=== PATIENT | male | born 1930 | race Caucasian/White ===

== ENCOUNTER → 2016-08-25 | Outpatient (CLI) | payer MEDICARE, OTHER ==
[~2016-08-25] MED LIST: ACHD5005 PO; AMLO10TA PO; AMLO5TAB2 PO; ASP325T PO; ASPI-587 PO; CLPD75T PO; FERR27TA PO; FISH OIL 1,2001 EAC1 PO; FOLI1TAB6 PO; INSU100V6 SQ; NEBI2.5T5 PO; NF-ESOM40C PO; PANT20TA2 PO; RIVA20TA4 PO; SIMV80TA3 PO
--- OUTSIDE RECORDS SUMMARY | 2016-08-25 07:44 | XMS REPORT | Continuity of Care Document ---
Author Author [facility] Organization [facility] Address Unknown Phone Unavailable Care Team Providers Care Catalyst Manufacturing Operator Name Role Phone MASON ACEVES MD PCP Insurance Providers Payer Name Policy Number Subscriber Name Relationship Wps Medicare [id number] Polo Cole 18 Self / Same As Patient Enter Insurance Name [id number] Ploo Cole 18 Self / Same As Patient Advance Directives Directive Response Recorded Date/Time Advance Directives No 11/05/14 11:38am Health Care Power of Copywriting Intern Y DAUGHTER 11/05/14 11:38am Organ Donor No 11/05/14 11:38am Problems Medical Problems Problem Onset Date Status Acute renal insufficiency Unknown Active Vertigo Unknown Active Orthostatic hypotension Unknown Active Orthostatic hypotension Unknown Active Medications Medication Dose Route Sig Days/Qty Instructions Order Date Discontinued Date Status Simvastatin 80 Mg PO DAILY 07/17/10 Active Clopidogrel Bisulfate 1 Each PO DAILY 07/17/10 11/05/14 Discontinued Nebivolol Hcl 1 Each PO DAILY 07/17/10 11/05/14 Discontinued [place]-3 Fatty Acids/Fish Oil 1 Each PO DAILY 07/17/10 Active Folic Acid/Mv,Fe,Other Min 1 Each PO DAILY 07/17/10 11/05/14 Discontinued Ferrous Sulfate 27 Mg PO DAILY 07/17/10 Active Aspirin 325 Mg PO DAILY 07/17/10 06/14/12 Discontinued Insulin Glargine,Hum.rec.anlog 8 Unit SQ BEDTIME 07/17/10 11/05/14 Discontinued Acetaminophen/Hydrocodone Bitart (Lorcet 5/325MG) 1 - 2 Tab PO NEEDED 28 Qty EVERY 4 HRS. NEEDED 08/03/10 06/14/12 Discontinued Esomeprazole Magnesium 1 Cap PO DAILY 30 Qty 06/20/12 11/05/14 Discontinued Insulin Glargine,Hum.rec.anlog 7 Unit SQ BEDTIME 0 Qty 11/05/14 Discontinued Pantoprazole Sodium 40 Mg PO TWICE A DAY 11/05/14 Active Rivaroxaban 20 Mg PO DAILY 11/05/14 Active Amlodipine Besylate 10 Mg PO DAILY 11/05/14 Active Aspirin 81 Mg PO DAILY 11/05/14 Active Amlodipine Besylate (Norvasc 5 Mg) 2.5 Mg PO DAILY 14 Qty 11/05/1406/21 Discontinued Social History Social History Problem Response Recorded Date/Time Alcohol Use Denies Use 11/05/2014 11:38am Recreational Drug Use No 11/05/2014 11:38am Recent Foreign Travel No 09/12/2014 9:54am Hospital Discharge Instructions No hospital discharge instructions. Plan of Care No plan of care. Functional Status No functional status results. Allergies, Adverse Reactions, Alerts Allergen Type Severity Reaction Status Last Updated Penicillins ([id number]) Allergy Unknown Active 07/22/10 Immunizations Name Given Type Date of Influenza Vaccine 03/07/12 Historical Tetanus Booster (TDap) More than 5yrs Historical Vital Signs No known vital signs results. Results No known relevant diagnostic tests, laboratory data and/or discharge summary. Procedures Procedure Status Date Provider(s) 48 hour Holter monitoring completed 09/12/14 MASON ACEVES MD 48 hour Holter monitoring completed 09/12/14 MASON ACEVES MD Encounters Encounter Location Date/Time Discharged Rec[facility]ring [facility] 09/12/14 9:55am
--- NOTE | 2016-08-25 10:05 | Diagnostic Imaging Report ---
INDICATION: Abdominal aortic aneurysm Abdominal aortic sonography performed in the routine fashion. Study limited due to overlying gas. Abdominal aortic aneurysm measured about 4.7 x 3.7 cm. This is compared to about 4.4 cm maximally on the prior study. Due to the limited visualization, might consider CT for further evaluation. IMPRESSION: Abdominal aortic aneurysm seen measuring 4.7 cm in greatest diameter. Visualization is limited secondary to overlying gas. Consider CT as clinically warranted for more complete evaluation. Dictated by: Dictated on workstation # [id number]
== END ==
LOC: RAD 07:39
PROVIDERS: ATTEND Internal Medicine Cardiovascular Disease
DX: I71.4 Abdominal aortic aneurysm, without rupture (principal); I65.23 Occlusion and stenosis of bilateral carotid arteries; N18.3 Chronic kidney disease, stage 3 (moderate); J43.8 Other emphysema; E11.43 Type 2 diabetes mellitus with diabetic autonomic (poly)neuropathy; I12.9 Hypertensive chronic kidney disease with stage 1 through stage 4 chronic kidney disease, or unspecified chronic kidney disease; E78.00 Pure hypercholesterolemia, unspecified; I70.0 Atherosclerosis of aorta; Z72.0 Tobacco use
CPT/HCPCS: 76775

== ENCOUNTER → 2017-01-07 | Outpatient (CLI) | payer MEDICARE, OTHER | LOC: CARD 08:05 | PROVIDERS: ATTEND Nurse Practitioner Family | DX: I71.4 Abdominal aortic aneurysm, without rupture (principal); I34.0 Nonrheumatic mitral (valve) insufficiency; J43.8 Other emphysema; R06.09 Other forms of dyspnea; I10 Essential (primary) hypertension | CPT/HCPCS: 93306 ==

== ENCOUNTER → 2017-01-20 | Outpatient (CLI) | payer MEDICARE, OTHER ==
--- NOTE | 2017-01-20 14:26 | Diagnostic Imaging Report ---
EXAMINATION: PA and lateral chest at 12:16 p.m. INDICATION: Postop colostomy. FINDINGS: The heart size is within normal limits and stable when compared to 09/04/2015. There is no sign of failure, pneumonia, or pleural effusion to suggest an acute abnormality. There is a small nodular density overlying the right upper lung. This finding has been present on previous exams dating back to 07/22/2010 and does not seem to have changed significantly. I suspect that this is a benign process given its relatively stable appearance over a roughly six-year period. The mediastinum is not widened. The osseous structures are intact. IMPRESSION: 1. There is no evidence for an acute cardiopulmonary abnormality. When compared to the prior study, there has been no significant change. 2. The nodular density overlying the right upper lung seen previously does not appear to have changed significantly. Most likely, this is a benign process. Dictated by: Dictated on workstation # [id number]
== END ==
LOC: RAD 11:48
PROVIDERS: ATTEND Nurse Practitioner Family
DX: R91.1 Solitary pulmonary nodule (principal); Z93.3 Colostomy status; Z98.890 Other specified postprocedural states
CPT/HCPCS: 71020

== ENCOUNTER → 2017-03-02 | Outpatient (CLI) | payer MEDICARE, OTHER ==
[2017-03-02 11:34] LABS: CALCIUM 9.8 MG/DL (8.5-10.1); CREATININE SERUM 1.4 MG/DL (0.60-1.30); MAGNESIUM 1.8 MG/DL (1.8-2.4); POTASSIUM 4.1 MMOL/L (3.6-5.0)
== END ==
LOC: LAB 10:28
PROVIDERS: ATTEND Internal Medicine Cardiovascular Disease
DX: I13.0 Hypertensive heart and chronic kidney disease with heart failure and stage 1 through stage 4 chronic kidney disease, or unspecified chronic kidney disease (principal); N18.3 Chronic kidney disease, stage 3 (moderate); I42.0 Dilated cardiomyopathy; I71.4 Abdominal aortic aneurysm, without rupture; I65.23 Occlusion and stenosis of bilateral carotid arteries; E11.29 Type 2 diabetes mellitus with other diabetic kidney complication; I70.0 Atherosclerosis of aorta; R42 Dizziness and giddiness
CPT/HCPCS: 36415; 80048; 83735

== ENCOUNTER → 2017-03-09 | Outpatient (CLI) | payer MEDICARE, OTHER ==
[2017-03-09 09:43] LABS: CREATININE SERUM 1.44 MG/DL (0.60-1.30); POTASSIUM 4.1 MMOL/L (3.6-5.0)
== END ==
LOC: LAB 09:09
PROVIDERS: ATTEND Nurse Practitioner Family
DX: I12.9 Hypertensive chronic kidney disease with stage 1 through stage 4 chronic kidney disease, or unspecified chronic kidney disease (principal); N18.3 Chronic kidney disease, stage 3 (moderate)
CPT/HCPCS: 36415; 80048

== ENCOUNTER → 2017-03-23 | Outpatient (CLI) | payer MEDICARE, OTHER ==
[~2017-03-23] MED LIST changes: +CATHETER FLUSH 10 ML SYR IV PRN; +REGADENOSON 0.4 MG/5 ML SYR (LEXISCAN) IV ONE
[2017-03-23 09:32] VITALS: BP 166/66
--- NOTE | 2017-03-25 14:21 | STRESS TEST ---
DATE OF SERVICE: 03/23/2017 RESTING AND POST REGADENOSON TECHNETIUM 99M TETROFOSMIN SPECT CT IMAGING. CLINICAL DIAGNOSIS: Dilated cardiomyopathy. Baseline images were carried out after injection of 10.78 mCi of technetium-99m Tetrofosmin. This was followed by 0.4 mg regadenoson and 30.2 mCi of technetium-99m Tetrofosmin for stress imaging. The electrocardiogram showed sinus rhythm with left ventricular hypertrophy with repolarization abnormality at baseline and this did not change significantly with regadenoson infusion. The patient tolerated the procedure well. Review of images at rest and following stress does not indicate any significant perfusion defects consistent with significant myocardial ischemia or infarction. Gated images show moderate global hypokinesis of the left ventricle with a calculated left ventricular ejection fraction of 39%. Left ventricular end diastolic volume is 134 mL. TID is absent (1.05). CONCLUSIONS: 1. No evidence of any significant myocardial ischemia or infarction on this study. 2. Dilated cardiomyopathy with moderate enlargement of the left ventricle, moderate global hypokinesis of the left ventricle and a calculated left ventricular ejection fraction of 39%. Job ID: [id number] DocumentID: [id number] Dictated Date: 03/25/2017 11:57:26 Trimmer Buffing Wheel Date: 03/25/2017 12:55:27 Dictated By: DONALD LEDEZMA MD, MA, FACP, FACC,
== END ==
LOC: CARD 07:07
PROVIDERS: ATTEND Internal Medicine Cardiovascular Disease
DX: I42.0 Dilated cardiomyopathy (principal); I12.9 Hypertensive chronic kidney disease with stage 1 through stage 4 chronic kidney disease, or unspecified chronic kidney disease; N18.3 Chronic kidney disease, stage 3 (moderate); I71.4 Abdominal aortic aneurysm, without rupture; I65.23 Occlusion and stenosis of bilateral carotid arteries; E11.29 Type 2 diabetes mellitus with other diabetic kidney complication; I70.0 Atherosclerosis of aorta; R42 Dizziness and giddiness
CPT/HCPCS: 78452; 93017

== ENCOUNTER 2018-09-18 10:57 | Inpatient (IN) | payer MEDICARE, OTHER | END 2018-09-23 10:16 | disposition swing bed (61) | LOC: 4TH 09-22 10:20 → ER 10:57 → ICU 09-19 08:35 → 4TH 12:50 → ICU 09-19 11:31 | DX: I11.0 Hypertensive heart disease with heart failure (principal); I50.23 Acute on chronic systolic (congestive) heart failure; J10.00 Influenza due to other identified influenza virus with unspecified type of pneumonia; J18.9 Pneumonia, unspecified organism; J96.21 Acute and chronic respiratory failure with hypoxia; J44.0 Chronic obstructive pulmonary disease with (acute) lower respiratory infection; J44.1 Chronic obstructive pulmonary disease with (acute) exacerbation; E78.00 Pure hypercholesterolemia, unspecified; E11.21 Type 2 diabetes mellitus with diabetic nephropathy; N18.3 Chronic kidney disease, stage 3 (moderate); E11.51 Type 2 diabetes mellitus with diabetic peripheral angiopathy without gangrene; I42.0 Dilated cardiomyopathy; I71.4 Abdominal aortic aneurysm, without rupture; I08.1 Rheumatic disorders of both mitral and tricuspid valves; R41.0 Disorientation, unspecified; E78.5 Hyperlipidemia, unspecified; H91.10 Presbycusis, unspecified ear; M19.91 Primary osteoarthritis, unspecified site; R53.1 Weakness; Z87.891 Personal history of nicotine dependence; Z99.81 Dependence on supplemental oxygen; Z85.46 Personal history of malignant neoplasm of prostate; Z90.79 Acquired absence of other genital organ(s); Z90.49 Acquired absence of other specified parts of digestive tract; Z86.718 Personal history of other venous thrombosis and embolism ==

== ENCOUNTER 2018-09-23 08:33 | Inpatient (IN) | payer MEDICARE, OTHER ==
[~2018-09-23] VITALS: Ht 185.4 cm; Wt 87.7 kg
[~2018-09-23 08:33] MED LIST changes: +ALBU2.5V4 NEB; +APIX2.5T PO; +ATOR80TA76 PO; -CATHETER FLUSH 10 ML SYR IV PRN; +FERR325T18 PO; +FURO20TA4 PO; +MULT-642 PO; +OMG1KC PO; +POTA10TA14 PO; +PRD20T PO; -REGADENOSON 0.4 MG/5 ML SYR (LEXISCAN) IV ONE
[2018-09-23] MEDS ORDERED: RT-ALBUTEROL/IPRATROPIUM 3 ML (DUONEB) VIAL INH PRN (10:45)
[2018-09-23] MEDS ORDERED: CEFEPIME INJECTION 2,000 MG in WATER (STERILE) FOR INJECTION 20 ML IV SCH (10:45)
[2018-09-23] MEDS ORDERED: ACETAMINOPHEN 325 MG TABLET PO PRN (10:45)
--- NOTE | 2018-09-23 11:04 | NUR ---
POLO KAPADIA Marita admitted to swing bed status to room 419-1, with an admitting diagnosis of SWB, PNE, COPD, WEAKNESS, CONFUSION, CHF, on 09/23/18 from acute inpatient status. PHYSICAL, OCCUPATIONAL, RECREATION, Therapy to evaluate patient for activity needs. POLO KAPADIA and/or family introduced to surroundings, call light, bed controls, phone, TV, temperature control, lights, meal times, smoking policy, visitor policy, side rail policy, bathrooms, and showers. Patient rights given to patient in the handbook.. POLO KAPADIA and/or family member verbalized understanding that [facility] is not responsible for the loss or damage to any personal effects or valuables that are kept in the patients possession during their hospitalization. The following care plans were discussed with POLO KAPADIA: Discharge Planning, WEAKNESS, CHF. POLO KAPADIA and/or family verbalizes understanding of the Interdisciplinary Patient Education. Patient and/or family were informed about the Rapid Response Team and its purpose. Call light with in reach and patient demonstrates understanding of how to use. POLO KAPADIA reports no further needs at this time. No change in patient status from 0800 Physical Assessment. Please refer to previous pt chart for assessment.
--- NOTE | 2018-09-23 11:40 | Physical Therapy Evaluation ---
PT Evaluation-General Medical Diagnosis Admission Date Sep 23, 2018 at 10:36 Medical Diagnosis: bert CHF Onset Date: Sep 18, 2018 Therapy Diagnosis Therapy Diagnosis: impaired mobility, strength, endurance Height/Weight Height (Feet): 6 Height (Inches): 1.00 Weight (Pounds): 206 Weight (Ounces): 0.0 Weight Bear Status Right Lower Extremity: Right Full Weight Bearing Left Lower Extremity: Left Full Weight Bearing Referral Physician: Cher Luo MD Reason for Referral: Evaluation/Treatment Medical History Additional Medical History Past Medical History Surgeries: Yes (PROSTATECTOMY, GALLBLADDER, AAA, KNEE) Respiratory: Yes COPD Cardiac: Yes (CHF) Chronic Edema/Swelling, Hypertension Neurological: No Reproductive Disorders: No Prostate Problems Gastrointestinal: Yes (Part of colon removed in 2009) Musculoskeletal: No Endocrine: Yes Diabetes, Insulin dep Cancer: Yes Prostate Reviewed History: Yes Social History Home: Single Level Current Living Status: Alone Entry Into Home: Stairs With Railing PT Steps Into Home: 2 Prior/Core FIM Prior Level of Function Therapy Code Descriptions/Definitions Functional Hand Measure: 0=Not Assessed/NA 4=Minimal Assistance 1=Total Assistance 5=Supervision or Setup 2=Maximal Assistance 6=Modified Hand 3=Moderate Assistance 7=Complete Hand Therapy Quality Codes: 6 Independent with activity with or without an assistive device 5 Patient requires set up or clean up by helper. Patient completes activity by themselves 4 Supervision or touching assist (CGA). [place] provide cues , steadying assist 3 The helper provides less than half the effort to complete the activity 2 The helper provides more than half the effort to complete the activity 1 Dependent. The helper does all the effort to complete an activity 7 Patient refused to complete or attempt activity 9 The patient did not perform the activity before the current illness or injury 88 Not attempted due to Medical conditions or safety concerns Functional Abilities and Goals: Independent: Patient completed the activities by him/herself, with or without an assistive device, with no assistance from a helper. Needed Some Help: Patient needed partial assistance from another person to complete activities. Dependent: A helper completed the activities for the patient. Unknown: Not Applicable: Bed Mobility: 7 Transfers (B,C,W/C) (FIM): 7 Gait: 7 Stairs: 7 Indoor Mobility (Ambulation): Independent Stairs: Independent PT Evaluation-Current Subjective Patient in bed pre tx, agrees to PT, has no complaints of pain. Pt/Family Goals "to get stronger" Objective Patient Orientation: Person, Confused Attachments: Oxygen, Vasquez Catheter 3L of O2 nasal canula ROM/Strength ROM Lower Extremities WNL Strenght Lower Extremities LLE 3+/5 gross, RLE 4-/5 gross Integumentary/Posture Bladder Incontinence: Vasquez Cath Neuromuscular (Tone, Coordination, Reflexes) NT Sensory Vision: Wears Glasses Hearing: Functional Sensation Right Lower Extremit: Intact Sensation Left Lower Extremity: Intact Transfers Therapy Code Descriptions/Definitions Functional Hand Measure: 0=Not Assessed/NA 4=Minimal Assistance 1=Total Assistance 5=Supervision or Setup 2=Maximal Assistance 6=Modified Hand 3=Moderate Assistance 7=Complete Hand Therapy Quality Codes: 6 Independent with activity with or without an assistive device 5 Patient requires set up or clean up by helper. Patient completes activity by themselves 4 Supervision or touching assist (CGA). [place] provide cues , steadying assist 3 The helper provides less than half the effort to complete the activity 2 The helper provides more than half the effort to complete the activity 1 Dependent. The helper does all the effort to complete an activity 7 Patient refused to complete or attempt activity 9 The patient did not perform the activity before the current illness or injury 88 Not attempted due to Medical conditions or safety concerns Transfers (B, C, W/C) (FIM): 4 Scootin Rollin Roll Left to Right (QC): 4 Supine to/from Sit: 4 Sit to/from Stand: 4 Sit to Lying (QC): 3 Lying to Sitting/Side of Bed(Q: 3 Sit to Stand (QC): 3 Chair/Zyi-pu-Ofebh Xfer(QC): 3 Patient performs bed mobility with SBA, supine <-> sit with min assist, sit <-> stand with min assist, transfers with min assist. Patient needs assist guiding walker, cues for hand placement and safety. Gait Does the Patient Walk?: Yes Mode of Locomotion: Walk Anticipated Mode of Locomotion: Walk Gait (FIM): 1 Walk 10 feet (QC): 3 Distance: 15' Gait Level of Assist: 4 Gait Persons Needed: 1 Gait Assistive Device: FWW Comments/Gait Description Patient ambulated 15' with a rolling walker with min assist. He needs cues to stand straiter, keep walker close and needs assist guiding walker. Balance Sitting Static: Good Sitting Dynamic: Good Standing Static: Fair Standing Dynamic: Fair Treatment bilateral seated LE exercises x20 (AP, LAQ) Assessment/Needs Patient has impaired mobility, strength, endurance. He needs assist with supine to sit and sit to stand and assist guiding the walker during ambulation. Patient is confused. Patient in recliner post tx with nurse call, phone, tray , chair alarm on. Rehab Potential: Fair PT Short Term Goals Short Term Goals Time Frame: Sep 30, 2018 Transfers (B,C,W/C) (FIM): 4 (CGA) Gait (FIM): 2 (CGA) Gait Distance Comment: 50' Gait Level of Assist: 4 Gait Assistive Device: FWW PT Plan Problem List Problem List: Activity Tolerance, Functional Strength, Safety, Balance, Gait, Transfer, Bed Mobility, ROM Treatment/Plan Treatment Plan: Continue Plan of Care Treatment Plan: Bed Mobility, Concurrent Therapy, Education, Functional Activity Tereza, Functional Strength, Gait, Safety, Therapeutic Exercise, Transfers Treatment Duration: Sep 30, 2018 Frequency: 6 times per week Estimated Hrs Per Day: .25 hour per day (15-30') Patient and/or Family Agrees t: Yes Safety Risks/Education Patient Education: Gait Training, Transfer Techniques, Correct Positioning, Safety Issues Teaching Recipient: Patient Teaching Methods: Demonstration, Discussion Response to Teaching: Reinforcement Needed Discharge Recommendations Plan Patient will perform bed mobility and transfer training, balance and endurance training, functional strengthening, gait training, and education, to improve functional mobility and independence at home. Therapy D/C Recommendations: Home w/ Family Support, Intermediate (TCU/NH) Time/GCodes Time In: 1115 Time Out: 1145 Total Billed Treatment Time: 30 Total Billed Treatment 1 visit BOZENA 15' FA 15' RAMY QUINTANILLA PT Sep 23, 2018 11:40
--- NOTE | 2018-09-23 11:48 | NUR ---
Admission Drug Regimen Review Completed: Date: 09/23/18 Time: 114 Physician Notified: MASON ACEVES MD Date: 09/23/18 Time: 1149 Issue Identified; Action Plan to Resolve and Any Action Taken:Doctor Valerio clarified that she wants the Solumedrol dose adjusted to as follows; Solumedrol 20mg IV Q12hr. She also added Eliquis 2.5mg PO BID to the patients medications that she wants him to have. I also added the ordered scheduled Albuterol/Ipra 3ml neb INH RTQ4hr scheduled back onto the patient's swing bed account as this was discontinued by [facility] d/t seen as a duplicate order.
[2018-09-23] MEDS: inSUlin ASPART (NovoLOG) 1 UNIT/0.01 ML (CHARGE PER UNIT) SC SCH ×3 (12:06→21:31)
[2018-09-23] MEDS: CEFEPIME INJECTION 2,000 MG in WATER (STERILE) FOR INJECTION 20 ML IV SCH (13:55)
--- NOTE | 2018-09-23 13:58 | ST Dysphagia Evaluation ---
Speech Evaluation-General Medical Diagnosis JOE noel Onset Date: Sep 18, 2018 Therapy Diagnosis Therapy Diagnosis: Oropharyngeal Dysphagia Precautions Precautions: Aspiration Referral Referring Physician: Dr. Luo Reason for Referral: Evaluation/Treatment Medical History Reviewed History: Yes Social History Current Living Status: Alone Speech PLF/Current-Dysphagia Prior Level of Function The patient lived alone at the time of his hospital admission. He was independent with his daily needs at that time. Subjective The patient was pleasant and cooperative. Cognitive Status Patient Orientation: Person, Place, Situation Oral Motor Skills Denture Type: Full- Upper & Lower Current Food Consistancy: Mechanical Soft Ability to Follow Directions: Good Oral Expression Ability: No Impairment Face Facial Symmetry: Symmetrical Oral-Facial Assessment Oral-Facial Dentition: Normal Labial Seal Description: Normal Smile: Normal Puff Cheeks: Normal Lingual Protrusion: Normal Lingual ROM: Normal Lingual Strength: Normal Pharynx Velopharyngeal Move.: Normal Volitional Dry Swallow: Yes Dysphagia Evaluation Consistencies Presented: Regular, Thin Liquid, Mechanical Soft, Pureed Oral Phase: Reduced Oral Transit Patient presents with delayed swallow onset for regular consistency. Decreased A/P bolus transfer for regular consistency. Funct. Velo/Pharyngeal Symptom: Cough After Swallow With regular consistency. Dietary Recommendations: Mechanical Soft Liquid Recommendations: Thin Swallowing Precautions: Alternate Liquids/Solids, Double Swallow, Decreased Rate of Oral Intake, Liquids from Straw, Small Bites and Sips, Sitting Upright 90 Degrees, Sitting 90 Degrees 30 Post Intake Dysphagia Evaluation Summary The patient is a pleasant 88 year old man who was admitted to the hospital due to pneumonia. The patient was referred for a bedside evaluation to assess swallow function. The Bedside Dysphagia Evaluation was completed with the patient sitting up in his recliner. He was presented thin liquids via straw without difficulty or coughing noted. The patient was presented puree and mechanical soft without incident of coughing. The presentation of regular consistency was noted to have a slight delay in swallow onset with cough/clear noted afterward. The patient will be placed on a Dysphagia II diet level with thin liquids. This was relayed to his nurse. Barriers to Learning Patient's age and current medical status. Speech Short Term Goals Short Term Goals Short Term Goals 1) The patient will tolerate least restrictive diet level at 90% or greater with minimal cues and no s/s of aspiration. 2) The patient will utilize compensatory strategies as trained with 90% or greater with minimal cues. Speech Fdc Goals Internet Site Designer Goals The patient will maintain adequate nutrition/hydration via safe effective swallow function. Speech-Plan Patient/Family Goals Patient/Family Goals: The patient plans to return home upon hospital discharge. Treatment Plan Speech Therapy Treatment Plan: Continue Plan of Care The patient will receive skilled ST services for dysphagia. Treatment Duration: Sep 30, 2018 Frequency: 5 times per week Estimated Hrs Per Day: .25 hour per day Rehab Potential: Fair Barriers to Learning: The patient's age and current medical status Pt/Family Agrees to Plan: Yes Safety Risks/Education Teaching Recipient: Patient Teaching Methods: Discussion Response to Teaching: Verbalize Understanding Education Topics Provided: Safety of oral intake Time Speech Therapy Time In: 12:30 Speech Therapy Time Out: 12:45 Total Billed Time: 15 Billed Treatment Time 1, KARELY Fierro Sep 23, 2018 13:58
[2018-09-23] MEDS: RT-ALBUTEROL/IPRATROPIUM 3 ML (DUONEB) VIAL INH SCH ×3 (14:37→22:46)
--- NOTE | 2018-09-23 14:57 | Occupational Therapy Eval ---
OT Evaluation-General/PLF Medical Diagnosis Admission Date Sep 23, 2018 at 10:36 Medical Diagnosis: bert CHF Onset Date: Sep 18, 2018 Therapy Diagnosis Therapy Diagnosis: decreased self care skills Height/Weight Height (Feet): 6 Height (Inches): 1.00 Weight (Pounds): 206 Weight (Ounces): 0.0 Referral Physician: Cher Luo MD Medical History Additional Medical History AAA, prostate cancer, prostatectomy, chronic edema, CHF, HTN, DM Social History Home: Single Level Current Living Status: Alone Entry Into Home: Stairs With Railing Steps Into Home: 2 ADL-Prior Level of Function Therapy Code Descriptions/Definitions Functional [place] Measure: 0=Not Assessed/NA 4=Minimal Assistance 1=Total Assistance 5=Supervision or Setup 2=Maximal Assistance 6=Modified [place] 3=Moderate Assistance 7=Complete [place] Therapy Quality Codes: 6 Independent with activity with or without an assistive device 5 Patient requires set up or clean up by helper. Patient completes activity by themselves 4 Supervision or touching assist (CGA). [place] provide cues , steadying assist 3 The helper provides less than half the effort to complete the activity 2 The helper provides more than half the effort to complete the activity 1 Dependent. The helper does all the effort to complete an activity 7 Patient refused to complete or attempt activity 9 The patient did not perform the activity before the current illness or injury 88 Not attempted due to Medical conditions or safety concerns Functional Abilities and Goals: Independent: Patient completed the activities by him/herself, with or without an assistive device, with no assistance from a helper. Needed Some Help: Patient needed partial assistance from another person to complete activities. Dependent: A helper completed the activities for the patient. Unknown: Not Applicable: ADL PLOF Comments Pt reports being independent with self care and mobility. OT Current Status Subjective Pt sitting in chair, agrees to therapy. Pt has no c/o pain. Mental Status/Objective Patient Orientation: Person confused. Oriented to person only Attachments: Vasquez Catheter, Oxygen Current Glasses/Contacts: Yes Hearing Aids: No Hand Dominance: Right Upper Extremity ROM Decreased shoulder ROM Upper Extremity Strength decreased bilaterally ADL-Treatment ADL-Current Pt completed sponge bath while seated in chair. Upper body bathing completed with SBA and cues for task completion. Assist required for lower body bathing. Don hospital gown with minimal assistance. Pt required assist to doff/don socks. Pt demonstrated ability to perform sit to stand and transfers with minimal assistance, cues for hand placement and safety. Pt combed hair with SBA while seated. Pt sitting in chair with needs met after session, RT present. Eating (FIM): 5 (by report) Eating (QC): 5 Grooming (FIM): 5 Bathing (FIM): 3 Shower/Bathe Self (QC): 3 On/Off Footwear (QC): 1 Transfers (B, C, W/C) (FIM): 4 Education OT Patient Education: Rehab process Teaching Recipient: Patient Teaching Methods: Discussion Response to Teaching: Reinforcement Needed OT Short Term Goals Short Term Goals Transfers (B,C,W/C) (FIM): 4 (CGA) 1=Demonstrate adherence to instructed precautions during ADL tasks. 2=Patient will verbalize/demonstrate understanding of assistive devices/ modifications for ADL. 3=Patient will improve strength/tolerance for activity to enable patient to perform ADL's. OT Electric Tripper Machine Operator Goals Assisted Goals Time Frame: October 07, 2018 Eating (FIM): 6 Eating (QC): 6 Groomin Oral Hygiene (QC): 6 Bathing(FIM): 4 Shower/Bathe Self (QC): 4 Upper Body Dressing(FIM): 5 Upper Body Dressing (QC): 5 Lower Body Dressing(FIM): 5 Lower Body Dressing (QC): 4 Toileting(FIM): 5 Toileting Hygiene (QC): 5 Toilet/Commode Transfer(FIM): 5 Toilet/Commode Transfer (QC): 5 Shower Transfer(FIM): 5 Additional Goals: 1-Demonstrate ADL Tasks, 2-Verbalize Understanding, 3- ImproveStrength/Tereza 1=Demonstrate adherence to instructed precautions during ADL tasks. 2=Patient will verbalize/demonstrate understanding of assistive devices/ modifications for ADL. 3=Patient will improve strength/tolerance for activity to enable patient to perform ADL's. OT Education/Plan Problem List/Assessment Assessment: Decreased Activ Tolerance, Decreased Safety Aware, Decreased UE Strength, Dependent Transfers, Impaired I ADL's, Impaired Self-Care Skills Pt to benefit from skilled OT intervention for ADL training, transfers, strengthening, and safety education to increase level of independence and allow safe discharge plan. Discharge Recommendations Plan/Recommendations: Continue POC Treatment Plan/Plan of Care Patient would benefit from OT for education, treatment and training to promote independence in ADL's, mobility, safety and/or upper extremity function for ADL' s. Plan of Care: ADL Retraining, Functional Mobility, UE Funct Exercise/Act Treatment Duration: October 07, 2018 Frequency: 5 times per week Estimated Hrs Per Day: .25 hour per day Rehab Potential: Fair Time/GCodes Start Time: 14:16 Stop Time: 14:40 Total Time Billed (hr/min): 24 Billed Treatment Time 1 visit, EVM(10minutes), ADL(14minutes) DEZ LOVING OT Sep 23, 2018 14:57
[2018-09-23 18:25] VITALS: BP 128/65
[2018-09-23] MEDS: methylPREDNISolone 40 MG/ML (Solu-MEDROL) VIAL IV SCH (21:31)
[2018-09-23] MEDS: APIXABAN 2.5 MG (ELIQUIS) TABLET PO SCH (21:31)
[2018-09-24] MEDS: RT-ALBUTEROL/IPRATROPIUM 3 ML (DUONEB) VIAL INH SCH ×6 (02:48→22:58)
[2018-09-24 04:27] LABS: HEMOGLOBIN 10.3 G/DL (13.3-17.7); MEAN PLATELET VOLUME 13.1 FL (7.4-10.4); RED CELL DISTRIBUTION WIDTH 17.4 % (10.0-14.5); WHITE BLOOD COUNT 11.2 10^3/uL (4.3-11.0)
[2018-09-24 04:45] LABS: ALBUMIN 2.7 GM/DL (3.2-4.5); BILIRUBIN,TOTAL 1.1 MG/DL (0.1-1.0); CALCIUM 8.8 MG/DL (8.5-10.1); CREATININE SERUM 1.21 MG/DL (0.60-1.30); POTASSIUM 4.4 MMOL/L (3.6-5.0); TOTAL PROTEIN 4.5 GM/DL (6.4-8.2)
[2018-09-24] MEDS: inSUlin ASPART (NovoLOG) 1 UNIT/0.01 ML (CHARGE PER UNIT) SC SCH ×4 (05:04→21:10)
[2018-09-24 06:00] VITALS: BP 137/72
--- NOTE | 2018-09-24 07:09 | Pulmonary Progress Note ---
Subjective Time Seen by a Provider: 10:35 Subjective/Events-last exam No complications noted. Sepsis Event Evaluation Height, Weight, BMI Height: 6'1.00" Weight: 206lbs. 0.0oz. 93.472898qc; 27.2 BMI Method:Stated Exam Exam Vital Signs Date Time Temp Pulse Resp B/P (MAP) Pulse Ox O2 Delivery O2 Flow Rate FiO2 09/24/18 06:00 96.9 77 20 137/72 (93) 93 Nasal Cannula 3.00 09/24/18 02:48 Nasal Cannula 3.00 09/23/18 22:49 Nasal Cannula 09/23/18 20:00 Nasal Cannula 3.00 09/23/18 19:04 96 Nasal Cannula 3.00 09/23/18 18:25 98.8 73 16 128/65 (86) 95 Nasal Cannula 3.00 09/23/18 14:37 94 Nasal Cannula 3.00 I & O 09/24/18 07:00 Intake Total 2070 ml Output Total 1750 ml Balance 320 ml Height & Weight Height: 6'1.00" Weight: 206lbs. 0.0oz. 93.854004pv; 27.2 BMI Method:Stated General Appearance: No Apparent Distress, WD/WN, Anxious, Chronically ill HEENT: PERRL/EOMI, Normal ENT Inspection, Pharynx Normal Neck: Full Range of Motion, Normal Inspection, Non Tender, Supple Respiratory: Chest Non Tender, No Accessory Muscle Use, No Respiratory Distress , Decreased Breath Sounds Cardiovascular: Regular Rate, Rhythm, No Edema, No Gallop Capillary Refill: Less Than 3 Seconds Gastrointestinal: normal bowel sounds, non tender, soft Extremity: Normal Capillary Refill, Normal Inspection, No Pedal Edema Neurologic/Psychiatric: Alert, Oriented x3 Skin: Normal Color, Warm/Dry Lymphatic: No Adenopathy Results Lab Laboratory Tests 09/24/18 03:50 Assessment/Plan Assessment/Plan Acute on chronic respiratory failure hypoxia secondary to CHF with bilateral pleural effusions and PNA -Oxygen PNA - Pt has hx of RUL lung nodule per CXR. No previous CT of chest -Continue Cefepime started 09/20 - continue Abx for 7days total. -Check CT of chest reviewed - No suspicious mass. Does show bilateral pleural effusions and RLL infiltrate -Pt will need repeat CT scan 8 wks after discharge to ensure complete resolution of infiltrate. Acute renal failure- improved after holding lasix yesterday COPDAE -Solumedrol 40 IV Q6 Influenza -Symptoms started 3 days ago however secondary to pt's acuity level I am going to start Tamiflu -Montior Systolic CHF -Lasix 40mg IV BID - Hold today's dose - Echo - 20-25% -Cardiology consulted -Stress test 03/23 shows EF of 39% NSTEMI -Cardiology consulted COPD -Last PFT 07/2012 shows moderate COPD -I will follow as out pt and repeat PFT Hx of lung nodule -Pt will need out pt CT scan. DM, HTN, hypercholesterolemia YONATAN WEBB DO Sep 24, 2018 07:09
[2018-09-24] MEDS: FUROSEMIDE 40 MG/4 ML INJ (LASIX) IVP SCH (08:21)
[2018-09-24] MEDS: methylPREDNISolone 40 MG/ML (Solu-MEDROL) VIAL IV SCH ×2 (08:21→21:10)
[2018-09-24] MEDS: KCL 20 MEQ TAB (K-DUR) PO SCH (08:22)
[2018-09-24] MEDS: APIXABAN 2.5 MG (ELIQUIS) TABLET PO SCH ×2 (08:22→21:09)
--- NOTE | 2018-09-24 09:52 | Physical Therapy Daily Note ---
PT Daily Note-Current Subjective Pt slightly confused upon arrival, states he already had PT this morning, as conversation went on, states he was mistaken and realized it was yesterday he had PT. Agreeable to PT session this morning Pain Numeric Pain Scale: 0-No Pain Appearance Upon arrival, pt supine in bed with HOB elevated, awake, slightly confused At end of session, pt sitting up in recliner with nurse present, chair alarm activated, call light, phone and bedside table within reach Mental Status Patient Orientation: Person, Confused, Place, Time, Situation Attachments: Oxygen, Vasquez Catheter Transfers Therapy Code Descriptions/Definitions Functional [place] Measure: 0=Not Assessed/NA 4=Minimal Assistance 1=Total Assistance 5=Supervision or Setup 2=Maximal Assistance 6=Modified [place] 3=Moderate Assistance 7=Complete [place] Therapy Quality Codes: 6 Independent with activity with or without an assistive device 5 Patient requires set up or clean up by helper. Patient completes activity by themselves 4 Supervision or touching assist (CGA). Cruger provide cues , steadying assist 3 The helper provides less than half the effort to complete the activity 2 The helper provides more than half the effort to complete the activity 1 Dependent. The helper does all the effort to complete an activity 7 Patient refused to complete or attempt activity 9 The patient did not perform the activity before the current illness or injury 88 Not attempted due to Medical conditions or safety concerns Transfers (B, C, W/C) (FIM): 4 Scootin Rollin Supine to/from Sit: 5 (HOB slightly elevated, did not use bedrail) Sit to/from Stand: 4 (CGA) CGA with sit to stand, verb instruction required for safety and hand placement. Pt able to complete upon 1st attempt without physical support Weight Bearing Right Lower Extremity: Right Full Weight Bearing Left Lower Extremity: Left Full Weight Bearing Gait Training Does the Patient Walk?: Yes Gait (FIM): 1 Distance (FIM): 1=up to 49 ft Distance: 40 Gait Level of Assist: 5 Gait Persons Needed: 1 Gait Assistive Device: FWW very slow but steady gait, decreased step height and length, improved slightly with instruction, but did not maintain. no LOB Exercises Seated Therapy Exercises: Ankle pumps, Long arc quads, Hip flexion, Hip abd/add Seated Reps: 20 Treatments bed mobility, transfer, gait, functional mobility, strengthening, balance, safety Assessment Current Status: Good Progress PT Short Term Goals Short Term Goals Time Frame: Sep 30, 2018 Transfers (B,C,W/C) (FIM): 4 (CGA) Gait (FIM): 2 (CGA) Gait Distance Comment: 50' Gait Level of Assist: 4 Gait Assistive Device: FWW PT Management Professionals Goals Skilled Nursing Goals Rollin PT Plan Treatment/Plan Treatment Plan: Continue Plan of Care Treatment Plan: Bed Mobility, Concurrent Therapy, Education, Functional Activity Tereza, Functional Strength, Gait, Safety, Therapeutic Exercise, Transfers Treatment Duration: Sep 30, 2018 Frequency: 6 times per week Estimated Hrs Per Day: .25 hour per day (15-30') Patient and/or Family Agrees t: Yes Safety Risks/Education Patient Education: Gait Training, Transfer Techniques, Safety Issues Teaching Recipient: Patient Teaching Methods: Demonstration, Discussion Response to Teaching: Verbalize Understanding, Return Demonstration, Reinforcement Needed Time/GCodes Time In: 808 Time Out: 825 Total Billed Treatment Time: 17 Total Billed Treatment 1 visit, GT x 1 unit OZ RIOJAS SOLUTION MAKER Sep 24, 2018 09:52
--- NOTE | 2018-09-24 10:30 | Diagnostic Imaging Report ---
INDICATION: Pneumonia. COMPARISON: 09/22/2018 FINDINGS: Frontal and lateral radiographic views of the chest were obtained. There has been interval improved aeration bilaterally with diminished interstitial infiltrates. Cardiac silhouette and pulmonary vasculature are also improved. There is masslike opacity within the right lower lung field, which is felt to on the basis of effusion contained within the right minor fissure. It measures approximately 7 x 7 cm. No pneumothorax seen on either side. Small left effusion is also noted. Bony structures show no acute abnormalities. IMPRESSION: 1. Improved cardiomegaly and pulmonary vascular congestion. 2. Improved interstitial opacities; likely on the basis of resolving interstitial edema. 3. Residual bilateral effusions as described above. Dictated by: Dictated on workstation # [id number]
[2018-09-24] MEDS: CEFEPIME INJECTION 2,000 MG in WATER (STERILE) FOR INJECTION 20 ML IV SCH (14:12)
[2018-09-24 18:00] VITALS: BP 161/70
[2018-09-25] MEDS: RT-ALBUTEROL/IPRATROPIUM 3 ML (DUONEB) VIAL INH SCH ×6 (02:22→21:50)
[2018-09-25 05:42] VITALS: BP 154/76
[2018-09-25] MEDS: inSUlin ASPART (NovoLOG) 1 UNIT/0.01 ML (CHARGE PER UNIT) SC SCH ×4 (06:22→20:24)
--- NOTE | 2018-09-25 06:57 | Pulmonary Progress Note ---
Subjective Time Seen by a Provider: 06:57 Subjective/Events-last exam Pt appears to be improving. No complications noted. Sepsis Event Evaluation Height, Weight, BMI Height: 6'1.00" Weight: 206lbs. 0.0oz. 93.805039kq; 27.2 BMI Method:Stated Exam Exam Vital Signs Date Time Temp Pulse Resp B/P (MAP) Pulse Ox O2 Delivery O2 Flow Rate FiO2 09/25/18 06:37 90 Nasal Cannula 3.00 09/25/18 05:42 97.7 70 22 154/76 (102) 97 Nasal Cannula 3.00 09/25/18 02:22 85 Nasal Cannula 2.00 09/24/18 22:58 92 Nasal Cannula 2.00 09/24/18 20:00 Nasal Cannula 3.00 09/24/18 18:50 97 Nasal Cannula 3.00 09/24/18 18:00 98.6 74 20 161/70 (100) 96 Nasal Cannula 3.00 09/24/18 14:59 98 Nasal Cannula 3.00 09/24/18 11:07 95 Nasal Cannula 3.00 09/24/18 09:00 Nasal Cannula 3.00 09/24/18 07:51 98 Nasal Cannula 3.00 I & O 09/25/18 06:59 Intake Total 2200 ml Output Total 1750 ml Balance 450 ml Height & Weight Height: 6'1.00" Weight: 206lbs. 0.0oz. 93.666115qs; 27.2 BMI Method:Stated General Appearance: No Apparent Distress, WD/WN HEENT: PERRL/EOMI, Normal ENT Inspection, Pharynx Normal Neck: Full Range of Motion, Normal Inspection, Non Tender, Supple Respiratory: Chest Non Tender, No Accessory Muscle Use, No Respiratory Distress , Crackles, Decreased Breath Sounds Cardiovascular: Regular Rate, Rhythm, No Edema, No Gallop, No JVD Capillary Refill: Less Than 3 Seconds Gastrointestinal: normal bowel sounds, non tender, soft, no organomegaly, no pulsatile mass Extremity: Normal Capillary Refill, No Calf Tenderness, No Pedal Edema Neurologic/Psychiatric: Alert, Oriented x3 Skin: Normal Color, Warm/Dry Lymphatic: No Adenopathy Results Lab Laboratory Tests 09/24/18 03:50 Assessment/Plan Assessment/Plan Acute on chronic respiratory failure hypoxia secondary to CHF with bilateral pleural effusions and PNA -Oxygen -Repeat labs and CXR PNA - Pt has hx of RUL lung nodule per CXR. No previous CT of chest -Continue Cefepime started 09/20 - continue Abx for 7days total. -Check CT of chest - No suspicious mass. Does show bilateral pleural effusions and RLL infiltrate -Pt will need repeat CT scan 8 wks after discharge to ensure complete resolution of infiltrate. Acute renal failure- improved after holding lasix yesterday COPDAE -Solumedrol 40 IV Q6 Influenza -Symptoms started 3 days ago however secondary to pt's acuity level I am going to start Tamiflu -Montior Systolic CHF -Lasix 40mg IV BID - Hold today's dose - Echo - 20-25% -Cardiology consulted -Stress test 03/23 shows EF of 39% NSTEMI -Cardiology consulted COPD -Last PFT 07/2012 shows moderate COPD -I will follow as out pt and repeat PFT Hx of lung nodule -Pt will need out pt CT scan. DM, HTN, hypercholesterolemia YONATAN WEBB DO Sep 25, 2018 06:57
[2018-09-25 08:21] LABS: BASOPHILS % (AUTO) 0 % (0-10); EOSINOPHILS % (AUTO) 0 % (0-10); HEMATOCRIT 31 % (40-54); HEMOGLOBIN 9.8 G/DL (13.3-17.7); LYMPHOCYTES # (AUTO) 0.8 X 10^3 (1.0-4.0); LYMPHOCYTES % (AUTO) 6 % (12-44); MEAN CORPUSCULAR HEMOGLOBIN 30 PG (25-34); MEAN CORPUSCULAR HGB CONC 32 G/DL (32-36); MEAN CORPUSCULAR VOLUME 94 FL (80-99); MONOCYTES # (AUTO) 1.1 X 10^3 (0.0-1.0); MONOCYTES % (AUTO) 10 % (0-12); NEUTROPHILS # (AUTO) 9.9 X 10^3 (1.8-7.8); NEUTROPHILS % (AUTO) 84 % (42-75); PLATELET COUNT 105 10^3/uL (130-400); RED CELL DISTRIBUTION WIDTH 17.1 % (10.0-14.5); WHITE BLOOD COUNT 11.8 10^3/uL (4.3-11.0)
[2018-09-25 08:36] LABS: CALCIUM 8.7 MG/DL (8.5-10.1); CREATININE SERUM 1.17 MG/DL (0.60-1.30); MAGNESIUM 2.1 MG/DL (1.8-2.4); PHOSPHORUS 2.8 MG/DL (2.3-4.7); POTASSIUM 4.6 MMOL/L (3.6-5.0)
[2018-09-25 08:44] LABS: BAND NEUTROPHILS 5 %; LYMPHOCYTES % (MANUAL) 13 %; MONOCYTES % (MANUAL) 6 %; NEUTROPHILS % (MANUAL) 76 %
[2018-09-25 08:45] LABS: ANISOCYTOSIS MARKED; HELMET/BITE CELLS SLIGHT; HYPERSEGMENTED NEUT SLIGHT
[2018-09-25 08:46] LABS: CRENATED RBC SLIGHT
--- NOTE | 2018-09-25 08:46 | Diagnostic Imaging Report ---
INDICATION: Shortness of breath. Comparison made with prior examination 09/24/2018. FINDINGS: There is cardiomegaly. There is some venous congestion. There are bibasilar infiltrates. There are small bilateral pleural effusions. There is no pneumothorax. Mediastinum is unremarkable. IMPRESSION: Bibasilar infiltrates and small bilateral pleural effusions. Cardiomegaly and some central pulmonary venous congestion. Dictated by: Dictated on workstation # [id number]
[2018-09-25 08:48] LABS: ACANTHOCYTES MODERATE
[2018-09-25] MEDS: FUROSEMIDE 40 MG/4 ML INJ (LASIX) IVP SCH (09:24)
[2018-09-25] MEDS: KCL 20 MEQ TAB (K-DUR) PO SCH (09:24)
[2018-09-25] MEDS: methylPREDNISolone 40 MG/ML (Solu-MEDROL) VIAL IV SCH ×2 (09:24→20:24)
[2018-09-25] MEDS: APIXABAN 2.5 MG (ELIQUIS) TABLET PO SCH ×2 (09:24→20:24)
[2018-09-25] MEDS: CEFEPIME INJECTION 2,000 MG in WATER (STERILE) FOR INJECTION 20 ML IV SCH (13:49)
[2018-09-25 18:32] VITALS: BP 120/57
[2018-09-26] MEDS: RT-ALBUTEROL/IPRATROPIUM 3 ML (DUONEB) VIAL INH SCH ×6 (01:53→22:22)
[2018-09-26 04:38] LABS: HEMOGLOBIN 9.3 G/DL (13.3-17.7); MEAN PLATELET VOLUME 13.1 FL (7.4-10.4); RED CELL DISTRIBUTION WIDTH 17.2 % (10.0-14.5); WHITE BLOOD COUNT 11.5 10^3/uL (4.3-11.0)
[2018-09-26 04:53] LABS: ALBUMIN 2.6 GM/DL (3.2-4.5); BILIRUBIN,TOTAL 0.9 MG/DL (0.1-1.0); CALCIUM 8.6 MG/DL (8.5-10.1); CREATININE SERUM 1.19 MG/DL (0.60-1.30); POTASSIUM 4.9 MMOL/L (3.6-5.0); TOTAL PROTEIN 4.3 GM/DL (6.4-8.2)
[2018-09-26 05:41] VITALS: BP 143/74
[2018-09-26] MEDS: inSUlin ASPART (NovoLOG) 1 UNIT/0.01 ML (CHARGE PER UNIT) SC SCH ×4 (06:37→21:12)
--- NOTE | 2018-09-26 08:52 | Progress Note ---
Subjective Date Seen by a Provider: Sep 26, 2018 Time Seen by a Provider: 08:52 Subjective/Events-last exam PT'S DAUGHTER REPORTS IMPROVED COGNITION TODAY COMPARED TO EARLIER IN THE WEEKEND. HE REPORTS THAT HE FEELS LIKE HIS NOSE IS STUFFY, HE IS NOT GETTING MUCH AIR HE WAS YESTERDAY. HIS DAUGHTER IS WONDERING WHY HE IS ON A SOFT DIET. HE DENIES ANY CHEST PAIN, ABDOMINAL PAIN, NAUSEA, DIZZINESS. Review of Systems General: Fatigue HEENT: No Head Aches, No Visual Changes Pulmonary: Dyspnea, Cough (IMPROVING) Cardiovascular: Edema; No: Chest Pain, Palpitations Gastrointestinal: No: Nausea, Abdominal Pain Genitourinary: Other (BROWN IN PLACE) Musculoskeletal: No: back pain Neurological: Weakness; No: Confusion Objective Exam Last Set of Vital Signs Vital Signs Date Time Temp Pulse Resp B/P (MAP) Pulse Ox O2 Delivery O2 Flow Rate FiO2 09/26/18 06:25 96 Nasal Cannula 3.00 09/26/18 05:41 98.2 70 20 143/74 (97) Capillary Refill : Less Than 3 Seconds I&O Intake and Output 09/26/18 00:00 Intake Total 1900 ml Output Total 1850 ml Balance 50 ml Intake Oral 1900 ml Output Urine Total 1850 ml General: Alert, Oriented X3, Cooperative, No Acute Distress HEENT: Atraumatic, PERRLA Neck: Supple Lungs: Other (DECREASED AIR MOVEMENT THROUGHOUT - WORSE AT BASES) Heart: Regular Rate Abdomen: Normal Bowel Sounds, Soft Extremities: No Cyanosis, Other (+3 PITTING AT ANKLES) Skin: No Rashes Neuro: Normal Speech Psych/Mental Status: Mental Status NL, Mood NL Results Lab Laboratory Tests 09/25/18 11:18: Glucometer 109 09/25/18 16:05: Glucometer 217H 09/25/18 20:02: Glucometer 179H 09/26/18 04:05: White Blood Count 11.5H, Red Blood Count 3.22L, Hemoglobin 9.3L, Hematocrit 30L , Mean Corpuscular Volume 94, Mean Corpuscular Hemoglobin 29, Mean Corpuscular Hemoglobin Concent 31L, Red Cell Distribution Width 17.2H, Platelet Count 156, Mean Platelet Volume 13.1H, Sodium Level 135, Potassium Level 4.9, Chloride Level 96L, Carbon Dioxide Level 32, Anion Gap 7, Blood Urea Nitrogen 49H, Creatinine 1.19, Estimat Glomerular Filtration Rate 58, BUN/Creatinine Ratio 41 , Glucose Level 184H, Calcium Level 8.6, Corrected Calcium 9.7, Total Bilirubin 0.9, Aspartate Amino Transf (AST/SGOT) 17, Alanine Aminotransferase (ALT/SGPT) 19, Alkaline Phosphatase 58, Total Protein 4.3L, Albumin 2.6L 09/26/18 05:05: Glucometer 189H Assessment/Plan Assessment/Plan Assess & Plan/Chief Complaint ACUTE RESPIRATORY FAILURE CONGESTIVE HEART FAILURE PNEUMONIA CHRONIC OBSTRUCTIVE PULMONARY DISEASE WITH ACUTE EXACERBATION LEUKOCYTOSIS ACUTE RENAL INSUFFICIENCY CHRONIC OXYGEN DEPENDENCE GENERALIZED WEAKNESS DIABETES MELLITUS OSTEOARTHRITIS ACUTE RESPIRATORY FAILURE - WAS PLACED ON BIPAP ON ADMISSION - PT IS ON NASAL CANNULA AT 3 LITERS - WITH HUMIDIFICATION. PER HIS REPORT, HE IS FEELING BETTER TODAY. HIS DAUGHTER NOTES IMPROVED COGNITIVE FUNCTION TODAY COMPARED TO EARLIER THIS WEEKEND. CONTINUE WITH IV ANTIBIOTICS UNTIL WEDNESDAY. - CHEST XRAY STILL SHOWING BIBASILAR INFILTRATES. CONGESTIVE HEART FAILURE - PT ON LASIX - CONTINUE WITH IV LASIX OVER THE NEXT FEW DAYS - WILL TRANSITION TO ORAL LASIX ON WEDNESDAY CHRONIC OBSTRUCTIVE PULMONARY DISEASE WITH ACUTE EXACERBATION - SUPPORTIVE CARE. LEUKOCYTOSIS - IMPROVED ACUTE RENAL INSUFFICIENCY - MONITOR LABS - RENAL FUNCTION HAS IMPROVED ON FLUIDS. DC BROWN CATHETER TODAY. CHRONIC OXYGEN DEPENDENCE GENERALIZED WEAKNESS - PT RECEIVING PHYSICAL AND OCCUPATIONAL THERAPY. DIABETES MELLITUS - DIABETIC PROTOCOL. OSTEOARTHRITIS - SUPPORTIVE CARE. CONFUSION - IMPROVED. Clinical Quality Measures DVT/VTE Risk/Contraindication: Risk Factor Score Per Nursin MASON ACEVES MD Sep 26, 2018 08:52
--- NOTE | 2018-09-26 08:56 | Diagnostic Imaging Report ---
INDICATION: Followup pneumonia. COMPARISON: 09/25/2018 FINDINGS: Frontal and lateral radiographic views of the chest were obtained and continue to show small bilateral pleural effusions. Overall, aeration shows continued interval improvement. There are minimal patchy residual bibasilar opacities. There is no pneumothorax. Cardiac silhouette is improved in size as well. Pulmonary vasculature appears to be within normal limits. No gross acute osseous abnormalities are seen. IMPRESSION: 1. Persistent small bibasilar pleural effusions, but with continued improved aeration. 2. Improved cardiomegaly and pulmonary vascular congestion. Dictated by: Dictated on workstation # [id number]
[2018-09-26] MEDS: KCL 20 MEQ TAB (K-DUR) PO SCH (09:22)
[2018-09-26] MEDS: methylPREDNISolone 40 MG/ML (Solu-MEDROL) VIAL IV SCH ×2 (09:22→22:04)
[2018-09-26] MEDS: APIXABAN 2.5 MG (ELIQUIS) TABLET PO SCH ×2 (09:22→22:04)
[2018-09-26] MEDS: FUROSEMIDE 40 MG/4 ML INJ (LASIX) IVP SCH (09:22)
--- NOTE | 2018-09-26 09:52 | Physical Therapy Daily Note ---
PT Daily Note-Current Subjective Pt reports he doesn't want to, but will work with PT this morning. Pt's dtr states he has already been up and down a lot this morning with going for chest xray and with working with OT and states he is pretty grumpy Pain Numeric Pain Scale: 0-No Pain Appearance Upon arrival, pt sitting up in recliner with nursing and daughter present. At end of session, pt sitting up in recliner with LE's elevated, call light, phone and bedside table within reach. Pt's dtr present Mental Status Patient Orientation: Person, Place, Time, Eyes Open, Situation, Mumbles Attachments: Saline Lock, Oxygen, Vasquez Catheter Transfers Therapy Code Descriptions/Definitions Functional [place] Measure: 0=Not Assessed/NA 4=Minimal Assistance 1=Total Assistance 5=Supervision or Setup 2=Maximal Assistance 6=Modified [place] 3=Moderate Assistance 7=Complete [place] Therapy Quality Codes: 6 Independent with activity with or without an assistive device 5 Patient requires set up or clean up by helper. Patient completes activity by themselves 4 Supervision or touching assist (CGA). [place] provide cues , steadying assist 3 The helper provides less than half the effort to complete the activity 2 The helper provides more than half the effort to complete the activity 1 Dependent. The helper does all the effort to complete an activity 7 Patient refused to complete or attempt activity 9 The patient did not perform the activity before the current illness or injury 88 Not attempted due to Medical conditions or safety concerns Transfers (B, C, W/C) (FIM): 3 Sit to/from Stand: 3 several attempts required to stand from chair, verb instruction required for safety and hand placement. Instruction to pt's daughter to allow him to do as much for himself as possible. Decreased physical assist required with each sit to stand performed. Continued with slightly uncontrolled descent with all stand to sit transitions. Weight Bearing Right Lower Extremity: Right Full Weight Bearing Left Lower Extremity: Left Full Weight Bearing Gait Training Does the Patient Walk?: Yes Gait (FIM): 5 Distance (FIM): 1=up to 49 ft Distance: 40 Gait Level of Assist: 5 Gait Persons Needed: 1 Gait Assistive Device: FWW very slow gait speed but steady. shuffling, decreased step height and length Exercises Seated Therapy Exercises: Ankle pumps, Sit to stand (x5), Long arc quads, Hip flexion Seated Reps: 20 slow performance requiring cues to increase motions performed Treatments transfer, safety, gait, activity tolerance, functional mobility, strength Assessment Noted increased need for physical assist with sit to stand transfers compared to Wednesday. Also noted increased edema BLE's, nsg notified PT Short Term Goals Short Term Goals Time Frame: Sep 30, 2018 Transfers (B,C,W/C) (FIM): 4 (CGA) Gait (FIM): 2 (CGA) Gait Distance Comment: 50' Gait Level of Assist: 4 Gait Assistive Device: FWW PT Chopper Feeder Goals Chopper Feeder Goals Rollin PT Plan Treatment/Plan Treatment Plan: Continue Plan of Care Treatment Plan: Bed Mobility, Concurrent Therapy, Education, Functional Activity Tereza, Functional Strength, Gait, Safety, Therapeutic Exercise, Transfers Treatment Duration: Sep 30, 2018 Frequency: 6 times per week Estimated Hrs Per Day: .25 hour per day (15-30') Patient and/or Family Agrees t: Yes Safety Risks/Education Patient Education: Gait Training, Transfer Techniques, Safety Issues Teaching Recipient: Patient, Family Teaching Methods: Demonstration, Discussion Response to Teaching: Verbalize Understanding, Return Demonstration, Reinforcement Needed Time/GCodes Time In: 929 Time Out: 956 Total Billed Treatment Time: 27 Total Billed Treatment 1 visit, GT x 1 unit, EX x 1 unit OZ RIOJAS STAMPING DIE MAKER Sep 26, 2018 09:52
[2018-09-26] MEDS ORDERED: POLYETHYLENE GLYCOL 17 GM (MIRALAX) PACK PO NR (10:30)
[2018-09-26] MEDS: SENNA W/DOCUSATE (SENOKOT S) TABLET PO SCH ×2 (10:52→22:04)
--- NOTE | 2018-09-26 11:26 | Occupational Ther Daily Note ---
OT Current Status-Daily Note Subjective No pain reported. Appearance Pt. is up in chair. Daughter in room. Pt. is using electric razor to shave face. Mental Status/Objective Patient Orientation: Person Therapy Code Descriptions/Definitions Functional [place] Measure: 0=Not Assessed/NA 4=Minimal Assistance 1=Total Assistance 5=Supervision or Setup 2=Maximal Assistance 6=Modified [place] 3=Moderate Assistance 7=Complete [place] ADL-Treatment Therapy Code Descriptions/Definitions Functional [place] Measure: 0=Not Assessed/NA 4=Minimal Assistance 1=Total Assistance 5=Supervision or Setup 2=Maximal Assistance 6=Modified [place] 3=Moderate Assistance 7=Complete [place] Therapy Quality Codes: 6 Independent with activity with or without an assistive device 5 Patient requires set up or clean up by helper. Patient completes activity by themselves 4 Supervision or touching assist (CGA). [place] provide cues , steadying assist 3 The helper provides less than half the effort to complete the activity 2 The helper provides more than half the effort to complete the activity 1 Dependent. The helper does all the effort to complete an activity 7 Patient refused to complete or attempt activity 9 The patient did not perform the activity before the current illness or injury 88 Not attempted due to Medical conditions or safety concerns Grooming (FIM): 5 (Supervision to shave with electric razor.) Oral Hygiene (QC): 4 Bathing (FIM): 3 (Pt. is able to wash under arms, chest, and front olu area with cues. OT washes back, rear olu area in stance, and bilateral LE. Pt. declines showering, but does agree to spongebathe.) Shower/Bathe Self (QC): 3 Upper Body (FIM): 3 (Daughter automatically assists pt. with donning button up shirt. States that he has been weak and so she does it for him. Does report that he does on his own at home previously. Pt. is encouraged to attempt for self. Pt. is able to button shirt up.) Upper Body Dressing (QC): 2 (Pt. is able to doff left slipper sock, but unable to doff right, or don socks. OT assists with this, as well as pajama pants. Pt. has catheter in.) Lower Body Dressing (FIM): 2 (Please see above note listed under upper body dressing.) Lower Body Dressing (QC): 2 On/Off Footwear (QC): 2 Transfers (B, C, W/C) (FIM): 3 (Max cues to scoot forward in chair. Mod assist to stand with walker. CGA in stance.) Other Treatment Pt. requires encouragement at times for ADL treatment to sequence steps. Daughter in room and assists with sequencing as well. Will continue to address strengthening for increased overall strength. Education OT Patient Education: Correct positioning, Modified ADL techniques, Progress toward Goal/Update tx plan, Purpose of tx/functional activities, Reviewed precautions, Rehab process, Transfer techniques Teaching Recipient: Patient Teaching Methods: Demonstration, Discussion Response to Teaching: Verbalize Understanding, Return Demonstration OT Short Term Goals Short Term Goals Transfers (B,C,W/C) (FIM): 4 (CGA) 1=Demonstrate adherence to instructed precautions during ADL tasks. 2=Patient will verbalize/demonstrate understanding of assistive devices/ modifications for ADL. 3=Patient will improve strength/tolerance for activity to enable patient to perform ADL's. OT Administrative Services Director Goals Administrative Services Director Goals Time Frame: October 07, 2018 Eating (FIM): 6 Eating (QC): 6 Groomin Oral Hygiene (QC): 6 Bathing(FIM): 4 Shower/Bathe Self (QC): 4 Upper Body Dressing(FIM): 5 Upper Body Dressing (QC): 5 Lower Body Dressing(FIM): 5 Lower Body Dressing (QC): 4 Toileting(FIM): 5 Toileting Hygiene (QC): 5 Toilet/Commode Transfer(FIM): 5 Toilet/Commode Transfer (QC): 5 Shower Transfer(FIM): 5 Additional Goals: 1-Demonstrate ADL Tasks, 2-Verbalize Understanding, 3- ImproveStrength/Tereza 1=Demonstrate adherence to instructed precautions during ADL tasks. 2=Patient will verbalize/demonstrate understanding of assistive devices/ modifications for ADL. 3=Patient will improve strength/tolerance for activity to enable patient to perform ADL's. OT Education/Plan Problem List/Assessment Assessment: Decreased Activ Tolerance, Decreased UE Strength, Impaired Funct Balance, Impaired I ADL's, Impaired Self-Care Skills Pt to benefit from skilled OT intervention for ADL training, transfers, strengthening, and safety education to increase level of independence and allow safe discharge plan. Discharge Recommendations Plan/Recommendations: Continue POC Therapy D/C Recommendations: Home w/ Family Support, Occupational Therapy Home Care, Scheduled Assistance Treatment Plan/Plan of Care Treatment,Training & Education: Yes Patient would benefit from OT for education, treatment and training to promote independence in ADL's, mobility, safety and/or upper extremity function for ADL' s. Plan of Care: ADL Retraining, Functional Mobility, UE Funct Exercise/Act Treatment Duration: October 07, 2018 Frequency: 5 times per week Estimated Hrs Per Day: .25 hour per day Agreement: Yes Rehab Potential: Fair Time/GCodes Start Time: 08:50 Stop Time: 09:15 Total Time Billed (hr/min): 25 Billed Treatment Time 1, ADL x 2 SANTI VELOZ OT Sep 26, 2018 11:26
--- NOTE | 2018-09-26 13:53 | Speech Therapy Daily Note ---
Speech Daily Progress Note Subjective Date Seen by Provider: Sep 26, 2018 Time Seen by Provider: 00:15 The patient was finishing his lunch when I arrived. Objective The patient consumed his lunch without s/s of aspiration while utilizing compensatory strategies given minimal verbal cues. Assessment Assessment Current Status: Good Progress Treatment Plan Continue Plan of Care Speech Short Term Goals Short Term Goals Short Term Goals 1) The patient will tolerate least restrictive diet level at 90% or greater with minimal cues and no s/s of aspiration. 2) The patient will utilize compensatory strategies as trained with 90% or greater with minimal cues. Speech Buffer Machine Goals Buffer Machine Goals The patient will maintain adequate nutrition/hydration via safe effective swallow function. Speech-Plan Patient/Family Goals Patient/Family Goals: The patient plans to return home upon discharge from the hospital. Treatment Plan Speech Therapy Treatment Plan: Continue Plan of Care The patient is progressing well with safety or oral intake. Treatment Duration: Sep 30, 2018 Frequency: 5 times per week Estimated Hrs Per Day: .25 hour per day Rehab Potential: Fair Barriers to Learning: Patient has some memory deficit. Pt/Family Agrees to Plan: Yes Safety Risks/Education Teaching Recipient: Patient Teaching Methods: Discussion Response to Teaching: Verbalize Understanding Education Topics Provided: Continued safety of oral intake. Time Speech Therapy Time In: 13:00 Speech Therapy Time Out: 13:15 Total Billed Time: 15 Billed Treatment Time [address] Sep 26, 2018 13:53
[2018-09-26] MEDS: CEFEPIME INJECTION 2,000 MG in WATER (STERILE) FOR INJECTION 20 ML IV SCH (14:33)
[2018-09-26] MEDS ORDERED: FUROSEMIDE 40 MG/4 ML INJ (LASIX) IVP NR (15:00)
[2018-09-26] MEDS ORDERED: ZINC OXIDE 16% OINT (BUTT PASTE) 113 GM TUBE TOP PRN (16:00)
[2018-09-26 17:55] VITALS: BP 103/52
[2018-09-27] MEDS: RT-ALBUTEROL/IPRATROPIUM 3 ML (DUONEB) VIAL INH SCH ×4 (02:23→19:32)
[2018-09-27 05:44] VITALS: BP 134/67
[2018-09-27] MEDS: inSUlin ASPART (NovoLOG) 1 UNIT/0.01 ML (CHARGE PER UNIT) SC SCH ×4 (06:23→21:59)
[2018-09-27] MEDS: APIXABAN 2.5 MG (ELIQUIS) TABLET PO SCH ×2 (08:49→21:59)
[2018-09-27] MEDS: FUROSEMIDE 40 MG/4 ML INJ (LASIX) IVP SCH (08:49)
[2018-09-27] MEDS: methylPREDNISolone 40 MG/ML (Solu-MEDROL) VIAL IV SCH (08:49)
[2018-09-27] MEDS: SENNA W/DOCUSATE (SENOKOT S) TABLET PO SCH ×2 (08:50→21:59)
[2018-09-27] MEDS: KCL 20 MEQ TAB (K-DUR) PO SCH (08:50)
--- NOTE | 2018-09-27 08:59 | Progress Note ---
Subjective Date Seen by a Provider: Sep 27, 2018 Time Seen by a Provider: 08:59 Subjective/Events-last exam PT IS AN 88 Y/O MALE WHO IS WELL KNOWN TO ME FROM CLINIC - ADMITTED FOR PNEUMONIA, RESPIRATORY FAILURE, HEART FAILURE WITH PLEURAL EFFUSIONS. PT REPORTS THAT TODAY HE IS FEELING BETTER, HE NOTES THAT HE HAS BEEN ABLE TO URINATE ON HIS OWN, BUT IT TOOK A WHILE TO FINALLY GET HIS URINE TO FLOW YESTERDAY AFTERNOON. HIS DTR REPORTS THAT THEY HAVE PLANS FOR ASSISTED LIVING TO BE STARTED ON 10/06/18 - [facility] IN [place]. Review of Systems General: Fatigue HEENT: No Head Aches Pulmonary: Dyspnea, Cough Cardiovascular: Edema (IMPROVED); No: Chest Pain, Palpitations Gastrointestinal: No: Nausea, Abdominal Pain, Diarrhea Genitourinary: Frequency Neurological: Weakness; No: Confusion Objective Exam Last Set of Vital Signs Vital Signs Date Time Temp Pulse Resp B/P (MAP) Pulse Ox O2 Delivery O2 Flow Rate FiO2 09/27/18 06:51 97 Nasal Cannula 3.00 09/27/18 05:44 98.4 64 18 134/67 (89) Capillary Refill : Less Than 3 Seconds I&O Intake and Output 09/27/18 00:00 Intake Total 1950 ml Output Total 3750 ml Balance -1800 ml Intake Oral 1950 ml Output Urine Total 3750 ml General: Alert, Oriented X3, Cooperative, No Acute Distress HEENT: Atraumatic, PERRLA Neck: Supple Lungs: Other (IMPROVED AIR MOVEMENT THROUGHOUT) Heart: Regular Rate Abdomen: Normal Bowel Sounds, Soft Extremities: No Cyanosis, Other (+3 PITTING AT ANKLES) Skin: No Rashes Neuro: Normal Speech Psych/Mental Status: Mental Status NL, Mood NL Results Lab Laboratory Tests 09/26/18 10:57: Glucometer 85 09/26/18 15:50: Glucometer 193H 09/26/18 20:55: Glucometer 174H 09/27/18 05:12: Glucometer 183H Assessment/Plan Assessment/Plan Assess & Plan/Chief Complaint ACUTE RESPIRATORY FAILURE CONGESTIVE HEART FAILURE PNEUMONIA CHRONIC OBSTRUCTIVE PULMONARY DISEASE WITH ACUTE EXACERBATION LEUKOCYTOSIS ACUTE RENAL INSUFFICIENCY CHRONIC OXYGEN DEPENDENCE GENERALIZED WEAKNESS DIABETES MELLITUS OSTEOARTHRITIS ACUTE RESPIRATORY FAILURE WITH CHRONIC OBSTRUCTIVE PULMONARY DISEASE ACUTE EXACERBATION- WAS PLACED ON BIPAP ON ADMISSION - PT IS ON NASAL CANNULA AT 3 LITERS - WITH HUMIDIFICATION. CONTINUE WITH IV ANTIBIOTICS UNTIL WEDNESDAY. PT TRANSITIONED TO ORAL STEROIDS ON 09/27/18 - 20MG DAILY PREDNISONE. CONGESTIVE HEART FAILURE - PT ON LASIX - CONTINUE WITH IV LASIX OVER THE NEXT FEW DAYS - WILL TRANSITION TO ORAL LASIX ON WEDNESDAY. LEUKOCYTOSIS - IMPROVED ACUTE RENAL INSUFFICIENCY - MONITOR LABS - RENAL FUNCTION HAS IMPROVED ON FLUIDS. KEIVN TERRAZAS'Ab ON 09/26/18 - PT URINATING WELL. CHRONIC OXYGEN DEPENDENCE GENERALIZED WEAKNESS - PT RECEIVING PHYSICAL AND OCCUPATIONAL THERAPY. DIABETES MELLITUS - DIABETIC PROTOCOL. OSTEOARTHRITIS - SUPPORTIVE CARE. CONFUSION - IMPROVED. PLANNING DISCHARGE TO HOME ON 09/29/18 WITH HOME HEALTH FOR ABOUT A WEEK BEFORE HE MOVES INTO ASSISTED LIVING AT [facility] [place]. Clinical Quality Measures DVT/VTE Risk/Contraindication: Risk Factor Score Per Nursin MASON ACEVES MD Sep 27, 2018 08:59
[2018-09-27] MEDS ORDERED: predniSONE 20 MG TAB PO NR (09:00)
--- NOTE | 2018-09-27 09:36 | Physical Therapy Daily Note ---
PT Daily Note-Current Subjective Pt reports not thrilled about therapy but knows he needs it. Agreeable to PT session. Pain Numeric Pain Scale: 0-No Pain Appearance Upon arrival, pt sitting up in recliner with daughter and nurse present. Physician arrived during therapy session Pt's daughter present throughout tx session. Pt in recliner with LE's elevated and chair alarm activated, call light, phone and bedside table within reach. Mental Status Patient Orientation: Person, Place, Time, Eyes Open, Situation Attachments: Oxygen Transfers Therapy Code Descriptions/Definitions Functional [place] Measure: 0=Not Assessed/NA 4=Minimal Assistance 1=Total Assistance 5=Supervision or Setup 2=Maximal Assistance 6=Modified [place] 3=Moderate Assistance 7=Complete [place] Therapy Quality Codes: 6 Independent with activity with or without an assistive device 5 Patient requires set up or clean up by helper. Patient completes activity by themselves 4 Supervision or touching assist (CGA). Lennon provide cues , steadying assist 3 The helper provides less than half the effort to complete the activity 2 The helper provides more than half the effort to complete the activity 1 Dependent. The helper does all the effort to complete an activity 7 Patient refused to complete or attempt activity 9 The patient did not perform the activity before the current illness or injury 88 Not attempted due to Medical conditions or safety concerns Transfers (B, C, W/C) (FIM): 3 Sit to/from Stand: 3 Pt able to perform 1st sit to stand transfer with min A provided, unable to complete any other sit to stand transfers after resting after gait without at least mod assist. Pt reports he keeps having sensation of falling backward and unable to assist to push forward. States he has a fear of falling. Weight Bearing Right Lower Extremity: Right Full Weight Bearing Left Lower Extremity: Left Full Weight Bearing Gait Training Does the Patient Walk?: Yes Gait (FIM): 5 Distance (FIM): 1=up to 49 ft Distance: 40 Gait Level of Assist: 5 Gait Persons Needed: 1 Gait Assistive Device: FWW shuffling but steady with decreased step length and height, instruction given to increase but pt did not. No LOB. Noted slight increased SOA and increased fatigue, report of dizziness, head spinning, not the room Exercises Seated Therapy Exercises: Ankle pumps, Long arc quads, Chair press-ups (unable to complete), Hip flexion, Hip abd/add Seated Reps: 20 (does not perform full ROM) Treatments transfer, safety, gait, functional mobility, activity tolerance, strengthening Assessment increased difficulty with sit to stand transfers, continues with LE edema and easily fatigues PT Short Term Goals Short Term Goals Time Frame: Sep 30, 2018 Transfers (B,C,W/C) (FIM): 4 (CGA) Gait (FIM): 2 (CGA) Gait Distance Comment: 50' Gait Level of Assist: 4 Gait Assistive Device: FWW PT Snf Goals Snf Goals Rollin PT Plan Treatment/Plan Treatment Plan: Continue Plan of Care Treatment Plan: Bed Mobility, Concurrent Therapy, Education, Functional Activity Tereza, Functional Strength, Gait, Safety, Therapeutic Exercise, Transfers Treatment Duration: Sep 30, 2018 Frequency: 6 times per week Estimated Hrs Per Day: .25 hour per day (15-30') Patient and/or Family Agrees t: Yes Safety Risks/Education Patient Education: Gait Training, Transfer Techniques, Safety Issues Teaching Recipient: Patient Teaching Methods: Demonstration, Discussion Response to Teaching: Verbalize Understanding, Return Demonstration, Reinforcement Needed Time/GCodes Time In: 855 Time Out: 924 Total Billed Treatment Time: 29 Total Billed Treatment 1 visit, GT x 1 unit, EX x 1 unit OZ RIOJAS PTA Sep 27, 2018 09:36
--- NOTE | 2018-09-27 09:48 | Pulmonary Progress Note ---
Subjective Time Seen by a Provider: 09:47 Subjective/Events-last exam Pt appears to be doing better. He is setting up in chair with NC. Sepsis Event Evaluation Height, Weight, BMI Height: 6'1.00" Weight: 132lbs. 12.8oz. 59.195629hh; 27.2 BMI Method:Stated Exam Exam Vital Signs Date Time Temp Pulse Resp B/P (MAP) Pulse Ox O2 Delivery O2 Flow Rate FiO2 09/27/18 09:00 Nasal Cannula 3.00 09/27/18 06:51 97 Nasal Cannula 3.00 09/27/18 05:44 98.4 64 18 134/67 (89) 96 Nasal Cannula 3.00 09/27/18 02:24 98 Nasal Cannula 3.00 09/26/18 22:22 97 Nasal Cannula 3.00 09/26/18 18:35 96 Nasal Cannula 3.00 09/26/18 17:55 98.2 65 18 103/52 (69) 94 Nasal Cannula 3.00 09/26/18 14:41 96 Nasal Cannula 3.00 09/26/18 10:30 99 Nasal Cannula 3.00 I & O 09/27/18 07:00 Intake Total 2350 ml Output Total 3875 ml Balance -1525 ml Height & Weight Height: 6'1.00" Weight: 132lbs. 12.8oz. 59.459228iz; 27.2 BMI Method:Stated General Appearance: No Apparent Distress, WD/WN HEENT: PERRL/EOMI, Normal ENT Inspection, Pharynx Normal Neck: Full Range of Motion, Normal Inspection, Non Tender, Supple Respiratory: Chest Non Tender, No Accessory Muscle Use, No Respiratory Distress , Crackles, Decreased Breath Sounds Cardiovascular: Regular Rate, Rhythm, No Edema, No Gallop, No JVD Capillary Refill: Less Than 3 Seconds Gastrointestinal: normal bowel sounds, non tender, soft, no organomegaly, no pulsatile mass Extremity: Normal Capillary Refill, No Calf Tenderness, No Pedal Edema Neurologic/Psychiatric: Alert, Oriented x3 Skin: Normal Color, Warm/Dry Lymphatic: No Adenopathy Results Lab Laboratory Tests 09/26/18 04:05 Assessment/Plan Assessment/Plan Acute on chronic respiratory failure hypoxia secondary to CHF with bilateral pleural effusions and PNA -Oxygen PNA - Pt has hx of RUL lung nodule per CXR. No previous CT of chest -Continue Cefepime started 09/20 - continue Abx for 7days total. -Check CT of chest - No suspicious mass. Does show bilateral pleural effusions and RLL infiltrate -Pt will need repeat CT scan 8 wks after discharge to ensure complete resolution of infiltrate. Acute renal failure- improved after holding lasix yesterday COPDAE -Solumedrol 40 IV Q6 Influenza -Symptoms started 3 days ago however secondary to pt's acuity level I am going to start Tamiflu -Montior Systolic CHF -Lasix 40mg IV BID - Hold today's dose - Echo - 20-25% -Cardiology consulted -Stress test 03/23 shows EF of 39% NSTEMI -Cardiology consulted COPD -Last PFT 07/2012 shows moderate COPD -I will follow as out pt and repeat PFT Hx of lung nodule -Pt will need out pt CT scan. DM, HTN, hypercholesterolemia YONATAN WEBB DO Sep 27, 2018 09:48
--- NOTE | 2018-09-27 09:50 | Pulmonary Progress Note ---
Subjective Date Seen by a Provider: Sep 26, 2018 (Late note for 09/26 today is 09/27) Time Seen by a Provider: 09:49 Subjective/Events-last exam No complications noted. Sepsis Event Evaluation Height, Weight, BMI Height: 6'1.00" Weight: 132lbs. 12.8oz. 59.845991dj; 27.2 BMI Method:Stated Exam Exam Vital Signs Date Time Temp Pulse Resp B/P (MAP) Pulse Ox O2 Delivery O2 Flow Rate FiO2 09/27/18 09:00 Nasal Cannula 3.00 09/27/18 06:51 97 Nasal Cannula 3.00 09/27/18 05:44 98.4 64 18 134/67 (89) 96 Nasal Cannula 3.00 09/27/18 02:24 98 Nasal Cannula 3.00 09/26/18 22:22 97 Nasal Cannula 3.00 09/26/18 18:35 96 Nasal Cannula 3.00 09/26/18 17:55 98.2 65 18 103/52 (69) 94 Nasal Cannula 3.00 09/26/18 14:41 96 Nasal Cannula 3.00 09/26/18 10:30 99 Nasal Cannula 3.00 I & O 09/27/18 07:00 Intake Total 2350 ml Output Total 3875 ml Balance -1525 ml Height & Weight Height: 6'1.00" Weight: 132lbs. 12.8oz. 59.211690km; 27.2 BMI Method:Stated General Appearance: No Apparent Distress, WD/WN HEENT: PERRL/EOMI, Normal ENT Inspection, Pharynx Normal Neck: Full Range of Motion, Normal Inspection, Non Tender, Supple Respiratory: Chest Non Tender, No Accessory Muscle Use, No Respiratory Distress , Crackles, Decreased Breath Sounds Cardiovascular: Regular Rate, Rhythm, No Edema, No Gallop, No JVD Capillary Refill: Less Than 3 Seconds Gastrointestinal: normal bowel sounds, non tender, soft, no organomegaly, no pulsatile mass Extremity: Normal Capillary Refill, No Calf Tenderness, No Pedal Edema Neurologic/Psychiatric: Alert, Oriented x3 Skin: Normal Color, Warm/Dry Lymphatic: No Adenopathy Results Lab Laboratory Tests 09/26/18 04:05 Assessment/Plan Assessment/Plan Acute on chronic respiratory failure hypoxia secondary to CHF with bilateral pleural effusions and PNA -Oxygen PNA - Pt has hx of RUL lung nodule per CXR. No previous CT of chest -Continue Cefepime started 09/20 - continue Abx for 7days total. -Check CT of chest - No suspicious mass. Does show bilateral pleural effusions and RLL infiltrate -Pt will need repeat CT scan 8 wks after discharge to ensure complete resolution of infiltrate. Acute renal failure- improved after holding lasix yesterday COPDAE -Prednisone taper. Influenza -Symptoms started 3 days ago however secondary to pt's acuity level I am going to start Tamiflu -Montior Systolic CHF -Lasix 40mg IV BID - Hold today's dose - Echo - 20-25% -Cardiology consulted -Stress test 03/23 shows EF of 39% NSTEMI -Cardiology consulted COPD -Last PFT 07/2012 shows moderate COPD -I will follow as out pt and repeat PFT Hx of lung nodule -Pt will need out pt CT scan. DM, HTN, hypercholesterolemia Plan is for discharge on Wed. YONATAN WEBB DO Sep 27, 2018 09:50
--- NOTE | 2018-09-27 09:51 | Occupational Ther Daily Note ---
OT Current Status-Daily Note Subjective No pain reported. However, pt. states that he is "just too tired." Appearance Pt. up in chair. Daughter in room. Mental Status/Objective Patient Orientation: Unable to Assess Therapy Code Descriptions/Definitions Functional [place] Measure: 0=Not Assessed/NA 4=Minimal Assistance 1=Total Assistance 5=Supervision or Setup 2=Maximal Assistance 6=Modified [place] 3=Moderate Assistance 7=Complete [place] ADL-Treatment Therapy Code Descriptions/Definitions Functional [place] Measure: 0=Not Assessed/NA 4=Minimal Assistance 1=Total Assistance 5=Supervision or Setup 2=Maximal Assistance 6=Modified [place] 3=Moderate Assistance 7=Complete [place] Therapy Quality Codes: 6 Independent with activity with or without an assistive device 5 Patient requires set up or clean up by helper. Patient completes activity by themselves 4 Supervision or touching assist (CGA). [place] provide cues , steadying assist 3 The helper provides less than half the effort to complete the activity 2 The helper provides more than half the effort to complete the activity 1 Dependent. The helper does all the effort to complete an activity 7 Patient refused to complete or attempt activity 9 The patient did not perform the activity before the current illness or injury 88 Not attempted due to Medical conditions or safety concerns Pt. up in chair. Seemed a bit more confused this date than yesterday. Daughter states that he just had PT. Pt. declines a shower at this time. States that he is just too tired. Pt. then reports that he has not had breakfast. Daughter states that she thought that he did. OT assisted him with ordering breakfast. Pt. completed 2 sets of exercises x 3 exercises in each set , x 10 reps each exercise. Worked on UE strengthening and ROM. Pt. requires multiple cues to follow through with each exercise to full capacity. Pt. is asked if he needs to use the bathroom while OT is there. Pt. does not. Daughter in room with pt. at end of treatment and states that she thinks that pt. is tired from getting up already. All needs met. Education OT Patient Education: Correct positioning, Exercise program, Progress toward Goal/Update tx plan, Purpose of tx/functional activities, Reviewed precautions, Rehab process, Transfer techniques Teaching Recipient: Patient Teaching Methods: Demonstration, Discussion Response to Teaching: Verbalize Understanding, Return Demonstration OT Short Term Goals Short Term Goals Transfers (B,C,W/C) (FIM): 4 (CGA) 1=Demonstrate adherence to instructed precautions during ADL tasks. 2=Patient will verbalize/demonstrate understanding of assistive devices/ modifications for ADL. 3=Patient will improve strength/tolerance for activity to enable patient to perform ADL's. OT Auto Former Machine Operator Goals Prison Goals Time Frame: October 07, 2018 Eating (FIM): 6 Eating (QC): 6 Groomin Oral Hygiene (QC): 6 Bathing(FIM): 4 Shower/Bathe Self (QC): 4 Upper Body Dressing(FIM): 5 Upper Body Dressing (QC): 5 Lower Body Dressing(FIM): 5 Lower Body Dressing (QC): 4 Toileting(FIM): 5 Toileting Hygiene (QC): 5 Toilet/Commode Transfer(FIM): 5 Toilet/Commode Transfer (QC): 5 Shower Transfer(FIM): 5 Additional Goals: 1-Demonstrate ADL Tasks, 2-Verbalize Understanding, 3- ImproveStrength/Tereza 1=Demonstrate adherence to instructed precautions during ADL tasks. 2=Patient will verbalize/demonstrate understanding of assistive devices/ modifications for ADL. 3=Patient will improve strength/tolerance for activity to enable patient to perform ADL's. OT Education/Plan Problem List/Assessment Assessment: Decreased Activ Tolerance, Decreased UE Strength, Dependent Transfers, Impaired Cognition, Impaired Coordination, Impaired Funct Balance, Impaired I ADL's, Impaired Self-Care Skills, Restricted Funct UE ROM Pt to benefit from skilled OT intervention for ADL training, transfers, strengthening, and safety education to increase level of independence and allow safe discharge plan. Discharge Recommendations Plan/Recommendations: Continue POC Treatment Plan/Plan of Care Treatment,Training & Education: Yes Patient would benefit from OT for education, treatment and training to promote independence in ADL's, mobility, safety and/or upper extremity function for ADL' s. Plan of Care: ADL Retraining, Functional Mobility, UE Funct Exercise/Act Treatment Duration: October 07, 2018 Frequency: 5 times per week Estimated Hrs Per Day: .25 hour per day Agreement: Yes Rehab Potential: Fair Time/GCodes Start Time: 09:25 Stop Time: 09:40 Total Time Billed (hr/min): 15 Billed Treatment Time 1, EX SANTI VELOZ OT Sep 27, 2018 09:51
--- NOTE | 2018-09-27 10:52 | NUR ---
CM/SS, continued discharge planning. HHC: Patient and daughter Sydney Guajardo indicate preferred agency to be [facility]. C will be coordinated once final orders are received. Sydney will stay with patient at his home until he moves into his apartment at [facility] October 06. DME: Patient has FWW and also 4WW with seat.
[2018-09-27] MEDS: CEFEPIME INJECTION 2,000 MG in WATER (STERILE) FOR INJECTION 20 ML IV SCH (14:45)
--- NOTE | 2018-09-27 15:45 | Speech Therapy Daily Note ---
Speech Daily Progress Note Subjective Date Seen by Provider: Sep 27, 2018 Time Seen by Provider: 00:15 The patient was resting in his chair. He stated he was tired from doing his therapy this am. Objective Patient consumed a snack and his drink without s/s of aspiration with minimal cues. Assessment Assessment Current Status: Good Progress Treatment Plan Continue Plan of Care Speech Short Term Goals Short Term Goals Short Term Goals 1) The patient will tolerate least restrictive diet level at 90% or greater with minimal cues and no s/s of aspiration. 2) The patient will utilize compensatory strategies as trained with 90% or greater with minimal cues. Speech Fci Goals Fci Goals The patient will maintain adequate nutrition/hydration via safe effective swallow function. Speech-Plan Patient/Family Goals Patient/Family Goals: The patient plans on returning home alone with family support as needed upon hospital discharge. Treatment Plan Speech Therapy Treatment Plan: Continue Plan of Care The patient is progressing well as a result of skilled ST services. Treatment Duration: Sep 30, 2018 Frequency: 5 times per week Estimated Hrs Per Day: .25 hour per day Rehab Potential: Fair Barriers to Learning: Patient has dementia, some days are worse than others for cogitive function. Pt/Family Agrees to Plan: Yes Safety Risks/Education Teaching Recipient: Patient Teaching Methods: Discussion Response to Teaching: Verbalize Understanding Time Speech Therapy Time In: 11:00 Speech Therapy Time Out: 11:15 Total Billed Time: 15 Billed Treatment Time 1, KARELY Hernandez Sep 27, 2018 15:45
[2018-09-27 18:00] VITALS: BP 136/63
[2018-09-28] MEDS: RT-ALBUTEROL/IPRATROPIUM 3 ML (DUONEB) VIAL INH SCH ×4 (02:58→19:40)
[2018-09-28] MEDS: inSUlin ASPART (NovoLOG) 1 UNIT/0.01 ML (CHARGE PER UNIT) SC SCH ×4 (05:38→21:24)
[2018-09-28] MEDS: predniSONE 20 MG TAB PO SCH (05:48)
[2018-09-28 06:15] LABS: HEMOGLOBIN 9.5 G/DL (13.3-17.7); MEAN PLATELET VOLUME 12.7 FL (7.4-10.4); RED CELL DISTRIBUTION WIDTH 17.1 % (10.0-14.5); WHITE BLOOD COUNT 12.4 10^3/uL (4.3-11.0)
[2018-09-28 06:30] VITALS: BP 147/69
[2018-09-28 06:33] LABS: ALBUMIN 2.8 GM/DL (3.2-4.5); BILIRUBIN,TOTAL 1.1 MG/DL (0.1-1.0); CALCIUM 8.8 MG/DL (8.5-10.1); CREATININE SERUM 1.19 MG/DL (0.60-1.30); POTASSIUM 4.5 MMOL/L (3.6-5.0); TOTAL PROTEIN 4.6 GM/DL (6.4-8.2)
--- NOTE | 2018-09-28 09:12 | Progress Note ---
Objective Exam Last Set of Vital Signs Vital Signs Date Time Temp Pulse Resp B/P (MAP) Pulse Ox O2 Delivery O2 Flow Rate FiO2 09/28/18 06:30 97.4 70 22 147/69 (95) 99 Nasal Cannula 3.00 Capillary Refill : Less Than 3 Seconds I&O Intake and Output 09/27/18 23:59 Intake Total 2170 ml Output Total 2075 ml Balance 95 ml Intake Oral 2170 ml Output Urine Total 2075 ml General: Alert, Oriented X3, Cooperative, No Acute Distress HEENT: Atraumatic, PERRLA Neck: Supple Lungs: Other (IMPROVED AIR MOVEMENT THROUGHOUT) Heart: Regular Rate Abdomen: Normal Bowel Sounds, Soft Extremities: No Cyanosis, Other (+3 PITTING AT ANKLES) Skin: No Rashes Neuro: Normal Speech Psych/Mental Status: Mental Status NL, Mood NL Results Lab Laboratory Tests 09/27/18 11:29: Glucometer 102 09/27/18 16:08: Glucometer 168H 09/27/18 20:44: Glucometer 164H 09/28/18 04:57: Glucometer 151H 09/28/18 05:45: White Blood Count 12.4H, Red Blood Count 3.26L, Hemoglobin 9.5L, Hematocrit 30L , Mean Corpuscular Volume 93, Mean Corpuscular Hemoglobin 29, Mean Corpuscular Hemoglobin Concent 32, Red Cell Distribution Width 17.1H, Platelet Count 176, Mean Platelet Volume 12.7H, Sodium Level 137, Potassium Level 4.5, Chloride Level 99, Carbon Dioxide Level 31, Anion Gap 7, Blood Urea Nitrogen 44H, Creatinine 1.19, Estimat Glomerular Filtration Rate 58, BUN/Creatinine Ratio 37 , Glucose Level 140H, Calcium Level 8.8, Corrected Calcium 9.8, Total Bilirubin 1.1H, Aspartate Amino Transf (AST/SGOT) 20, Alanine Aminotransferase (ALT/SGPT) 24, Alkaline Phosphatase 61, Total Protein 4.6L, Albumin 2.8L Assessment/Plan Assessment/Plan Assess & Plan/Chief Complaint ACUTE RESPIRATORY FAILURE CONGESTIVE HEART FAILURE PNEUMONIA CHRONIC OBSTRUCTIVE PULMONARY DISEASE WITH ACUTE EXACERBATION LEUKOCYTOSIS ACUTE RENAL INSUFFICIENCY CHRONIC OXYGEN DEPENDENCE GENERALIZED WEAKNESS DIABETES MELLITUS OSTEOARTHRITIS ACUTE RESPIRATORY FAILURE WITH CHRONIC OBSTRUCTIVE PULMONARY DISEASE ACUTE EXACERBATION- WAS PLACED ON BIPAP ON ADMISSION - PT IS ON NASAL CANNULA AT 3 LITERS - WITH HUMIDIFICATION. CONTINUE WITH IV ANTIBIOTICS UNTIL WEDNESDAY. PT TRANSITIONED TO ORAL STEROIDS ON 09/27/18 - 20MG DAILY PREDNISONE. CONGESTIVE HEART FAILURE - PT ON LASIX - CONTINUE WITH IV LASIX OVER THE NEXT FEW DAYS - WILL TRANSITION TO ORAL LASIX ON WEDNESDAY. LEUKOCYTOSIS - IMPROVED ACUTE RENAL INSUFFICIENCY - MONITOR LABS - RENAL FUNCTION HAS IMPROVED ON FLUIDS. KEVIN TERRAZAS'Ab ON 09/26/18 - PT URINATING WELL. CHRONIC OXYGEN DEPENDENCE GENERALIZED WEAKNESS - PT RECEIVING PHYSICAL AND OCCUPATIONAL THERAPY. DIABETES MELLITUS - DIABETIC PROTOCOL. OSTEOARTHRITIS - SUPPORTIVE CARE. CONFUSION - IMPROVED. PLANNING DISCHARGE TO HOME ON 09/29/18 WITH HOME HEALTH FOR ABOUT A WEEK BEFORE HE MOVES INTO ASSISTED LIVING AT [facility] IN [place]. Clinical Quality Measures DVT/VTE Risk/Contraindication: Risk Factor Score Per Nursin MASON ACEVES MD Sep 28, 2018 09:12
[2018-09-28] MEDS ORDERED: POLYETHYLENE GLYCOL 17 GM (MIRALAX) PACK PO NR (09:15)
[2018-09-28] MEDS ORDERED: FLEET ENEMA ADULT 1 EA BTL PR NR (09:30)
--- NOTE | 2018-09-28 09:55 | Pulmonary Progress Note ---
Subjective Time Seen by a Provider: 10:34 Subjective/Events-last exam Daughter at bedside. No complications noted. Sepsis Event Evaluation Height, Weight, BMI Height: 6'1.00" Weight: 192lbs. 11.5oz. 87.607486jb; 27.2 BMI Method:Stated Exam Exam Vital Signs Date Time Temp Pulse Resp B/P (MAP) Pulse Ox O2 Delivery O2 Flow Rate FiO2 09/28/18 06:30 97.4 70 22 147/69 (95) 99 Nasal Cannula 3.00 09/28/18 02:58 92 Nasal Cannula 3.00 09/27/18 20:00 Nasal Cannula 3.00 09/27/18 19:32 92 Nasal Cannula 3.00 09/27/18 18:00 99.3 77 18 136/63 (87) 97 Nasal Cannula 3.00 09/27/18 15:10 94 Nasal Cannula 3.00 I & O 09/28/18 07:00 Intake Total 1920 ml Output Total 2500 ml Balance -580 ml Height & Weight Height: 6'1.00" Weight: 192lbs. 11.5oz. 87.485268eq; 27.2 BMI Method:Stated General Appearance: No Apparent Distress, WD/WN HEENT: PERRL/EOMI, Normal ENT Inspection, Pharynx Normal Neck: Full Range of Motion, Normal Inspection, Non Tender, Supple Respiratory: Chest Non Tender, No Accessory Muscle Use, No Respiratory Distress , Crackles, Decreased Breath Sounds Cardiovascular: Regular Rate, Rhythm, No Edema, No Gallop, No JVD Capillary Refill: Less Than 3 Seconds Gastrointestinal: normal bowel sounds, non tender, soft, no organomegaly, no pulsatile mass Extremity: Normal Capillary Refill, No Calf Tenderness, No Pedal Edema Neurologic/Psychiatric: Alert, Oriented x3 Skin: Normal Color, Warm/Dry Lymphatic: No Adenopathy Results Lab Laboratory Tests 09/28/18 05:45 Assessment/Plan Assessment/Plan Acute on chronic respiratory failure hypoxia secondary to CHF with bilateral pleural effusions and PNA -Oxygen -Will repeat CXR PNA - Pt has hx of RUL lung nodule per CXR. No previous CT of chest -Continue Cefepime started 09/20 - continue Abx for 7days total. -Check CT of chest - No suspicious mass. Does show bilateral pleural effusions and RLL infiltrate -Pt will need repeat CT scan 8 wks after discharge to ensure complete resolution of infiltrate. Acute renal failure- improved after holding lasix yesterday COPDAE -Prednisone taper. Influenza -Symptoms started 3 days ago however secondary to pt's acuity level I am going to start Tamiflu -Montior Systolic CHF -Lasix 40mg IV BID - Hold today's dose - Echo - 20-25% -Cardiology consulted -Stress test 03/23 shows EF of 39% NSTEMI -Cardiology consulted COPD -Last PFT 07/2012 shows moderate COPD -I will follow as out pt and repeat PFT Hx of lung nodule -Pt will need out pt CT scan. DM, HTN, hypercholesterolemia Plan is for discharge Tomorrow YONATAN WEBB DO Sep 28, 2018 09:55
[2018-09-28] MEDS: APIXABAN 2.5 MG (ELIQUIS) TABLET PO SCH ×2 (10:31→21:24)
[2018-09-28] MEDS: SENNA W/DOCUSATE (SENOKOT S) TABLET PO SCH ×2 (10:31→21:24)
[2018-09-28] MEDS: FUROSEMIDE 40 MG/4 ML INJ (LASIX) IVP SCH (10:31)
[2018-09-28] MEDS: KCL 20 MEQ TAB (K-DUR) PO SCH (10:31)
--- NOTE | 2018-09-28 11:08 | Occupational Ther Daily Note ---
OT Current Status-Daily Note Subjective No pain reported. Appearance Nursing in room getting ready to give pt. enema. Nursing states that she will hold off so that OT can work with pt. Mental Status/Objective Patient Orientation: Person Therapy Code Descriptions/Definitions Functional [place] Measure: 0=Not Assessed/NA 4=Minimal Assistance 1=Total Assistance 5=Supervision or Setup 2=Maximal Assistance 6=Modified [place] 3=Moderate Assistance 7=Complete [place] ADL-Treatment Therapy Code Descriptions/Definitions Functional [place] Measure: 0=Not Assessed/NA 4=Minimal Assistance 1=Total Assistance 5=Supervision or Setup 2=Maximal Assistance 6=Modified [place] 3=Moderate Assistance 7=Complete [place] Therapy Quality Codes: 6 Independent with activity with or without an assistive device 5 Patient requires set up or clean up by helper. Patient completes activity by themselves 4 Supervision or touching assist (CGA). [place] provide cues , steadying assist 3 The helper provides less than half the effort to complete the activity 2 The helper provides more than half the effort to complete the activity 1 Dependent. The helper does all the effort to complete an activity 7 Patient refused to complete or attempt activity 9 The patient did not perform the activity before the current illness or injury 88 Not attempted due to Medical conditions or safety concerns Grooming (FIM): 5 (SBA and cues to wash face and comb hair.) Lower Body Dressing (FIM): 2 (Pt. encouraged to attempt donning his own socks but states that he can't. OT did this for him.) Lower Body Dressing (QC): 2 On/Off Footwear (QC): 2 Transfers (B, C, W/C) (FIM): 3 (Min assist supine-sit. Mod assist sit-stand. Stood and ambulated with min assist in lee with walker. Ambulated approximately 30 feet. Sat on bed and had to stand again to position self better. This time required mod assist and bed elevated. Took steps toward HOB and transferred sit-supine with Min assist. All needs met in bed.) pt. requires cues and encouragement to do more throughout session. Education OT Patient Education: Correct positioning, Modified ADL techniques, Progress toward Goal/Update tx plan, Purpose of tx/functional activities, Reviewed precautions, Rehab process, Transfer techniques Teaching Recipient: Patient Teaching Methods: Demonstration, Discussion Response to Teaching: Verbalize Understanding, Return Demonstration OT Short Term Goals Short Term Goals Transfers (B,C,W/C) (FIM): 4 (CGA) 1=Demonstrate adherence to instructed precautions during ADL tasks. 2=Patient will verbalize/demonstrate understanding of assistive devices/ modifications for ADL. 3=Patient will improve strength/tolerance for activity to enable patient to perform ADL's. OT Usp Goals Usp Goals Time Frame: October 07, 2018 Eating (FIM): 6 Eating (QC): 6 Groomin Oral Hygiene (QC): 6 Bathing(FIM): 4 Shower/Bathe Self (QC): 4 Upper Body Dressing(FIM): 5 Upper Body Dressing (QC): 5 Lower Body Dressing(FIM): 5 Lower Body Dressing (QC): 4 Toileting(FIM): 5 Toileting Hygiene (QC): 5 Toilet/Commode Transfer(FIM): 5 Toilet/Commode Transfer (QC): 5 Shower Transfer(FIM): 5 Additional Goals: 1-Demonstrate ADL Tasks, 2-Verbalize Understanding, 3- ImproveStrength/Tereza 1=Demonstrate adherence to instructed precautions during ADL tasks. 2=Patient will verbalize/demonstrate understanding of assistive devices/ modifications for ADL. 3=Patient will improve strength/tolerance for activity to enable patient to perform ADL's. OT Education/Plan Problem List/Assessment Assessment: Decreased Activ Tolerance, Decreased UE Strength, Dependent Transfers, Impaired Bed Mobility, Impaired Cognition, Impaired Funct Balance, Impaired I ADL's, Impaired Self-Care Skills, Restricted Funct UE ROM Pt to benefit from skilled OT intervention for ADL training, transfers, strengthening, and safety education to increase level of independence and allow safe discharge plan. Discharge Recommendations Plan/Recommendations: Continue POC Therapy D/C Recommendations: 24 hr Supervision, Home w/ Family Support Treatment Plan/Plan of Care Treatment,Training & Education: Yes Patient would benefit from OT for education, treatment and training to promote independence in ADL's, mobility, safety and/or upper extremity function for ADL' s. Plan of Care: ADL Retraining, Functional Mobility, UE Funct Exercise/Act Treatment Duration: October 07, 2018 Frequency: 5 times per week Estimated Hrs Per Day: .25 hour per day Agreement: Yes Rehab Potential: Fair Time/GCodes Start Time: 10:30 Stop Time: 10:50 Total Time Billed (hr/min): 20 Billed Treatment Time 1, SANTI DAVIS OT Sep 28, 2018 11:08
--- NOTE | 2018-09-28 11:53 | Physical Therapy Daily Note ---
PT Daily Note-Current Subjective Patient in bed pre tx, agrees to PT, has no complaints of pain but needs urgently to urinate and would like to use the urinal while standing. Appearance Patient in recliner post tx with nurse call, phone, tray, chair alarm on. Mental Status Patient Orientation: Person, Confused Attachments: Oxygen 3L of O2 nasal canula Transfers Therapy Code Descriptions/Definitions Functional [place] Measure: 0=Not Assessed/NA 4=Minimal Assistance 1=Total Assistance 5=Supervision or Setup 2=Maximal Assistance 6=Modified [place] 3=Moderate Assistance 7=Complete [place] Therapy Quality Codes: 6 Independent with activity with or without an assistive device 5 Patient requires set up or clean up by helper. Patient completes activity by themselves 4 Supervision or touching assist (CGA). [place] provide cues , steadying assist 3 The helper provides less than half the effort to complete the activity 2 The helper provides more than half the effort to complete the activity 1 Dependent. The helper does all the effort to complete an activity 7 Patient refused to complete or attempt activity 9 The patient did not perform the activity before the current illness or injury 88 Not attempted due to Medical conditions or safety concerns Transfers (B, C, W/C) (FIM): 3 Scootin Rollin Supine to/from Sit: 3 Sit to/from Stand: 4 Bed to/from Chair: 4 Mod assist for scooting and supine to sit, min assist to stand. Patient was able to position the urinal himself and urinate. Weight Bearing Right Lower Extremity: Right Full Weight Bearing Left Lower Extremity: Left Full Weight Bearing Gait Training Gait (FIM): 1 Distance: 30' Gait Level of Assist: 4 Gait Persons Needed: 1 Gait Assistive Device: FWW CGA, slow, occasional standing rest break, SOB Exercises Seated Therapy Exercises: Long arc quads, Hip flexion Seated Reps: 20 Treatments bed mobility, transfers, ambulation, LE exercisese Assessment Current Status: Fair Progress patient very fatigued to begin with but was able to ambulate into the hallway PT Short Term Goals Short Term Goals Time Frame: Sep 30, 2018 Transfers (B,C,W/C) (FIM): 4 (CGA) Gait (FIM): 2 (CGA) Gait Distance Comment: 50' Gait Level of Assist: 4 Gait Assistive Device: FWW PT Clinical Safety Specialist Goals Chcf Goals Rollin PT Plan Problem List Problem List: Activity Tolerance, Functional Strength, Safety, Balance, Gait, Transfer, Bed Mobility Treatment/Plan Treatment Plan: Continue Plan of Care Treatment Plan: Bed Mobility, Concurrent Therapy, Education, Functional Activity Tereza, Functional Strength, Gait, Safety, Therapeutic Exercise, Transfers Treatment Duration: Sep 30, 2018 Frequency: 6 times per week Estimated Hrs Per Day: .25 hour per day (15-30') Patient and/or Family Agrees t: Yes Safety Risks/Education Patient Education: Gait Training, Transfer Techniques, Correct Positioning, Safety Issues Teaching Recipient: Patient Teaching Methods: Demonstration, Discussion Response to Teaching: Reinforcement Needed Time/GCodes Time In: 1132 Time Out: 1147 Total Billed Treatment Time: 15 Total Billed Treatment 1 visit GT 15' RAMY QUINTANILLA PT Sep 28, 2018 11:52
--- NOTE | 2018-09-28 12:43 | Diagnostic Imaging Report ---
INDICATION: Shortness of air. COMPARISON: 09/26/2018. FINDINGS: Single frontal radiographic view of the chest was obtained and demonstrates [id number] cardiomegaly as well as mild pulmonary vascular congestion. There is persistent small left basilar effusion. Small amount of pleural fluid is also again noted on the right. No pneumothorax is seen on either side. Bony structures show no gross acute abnormalities. IMPRESSION: 1. Persistent [id number] cardiomegaly and mild pulmonary vascular congestion. 2. Stable small bilateral pleural effusions. Dictated by: Dictated on workstation # [id number]
--- NOTE | 2018-09-28 14:17 | NUR ---
SPO2 DROPPED TO 88% ON ROOM AIR @ REST. REPLACED O2 @ 2 LPM. SPO2 INCREASED TO 93%. Addendum: 09/28/18 at 1443 by MARCOS CUNNINGHAM RT Amended: Links added.
--- NOTE | 2018-09-28 14:45 | NUR ---
Notice of Medicare Non Coverage presented/reviewed/signed and placed in patient chart. Patient voiced no intention to appeal and deny any needs or further questions at this time.
--- NOTE | 2018-09-28 14:48 | NUR ---
Pt is Taoist and declines sacraments.
--- NOTE | 2018-09-28 15:31 | Speech Therapy Daily Note ---
Speech Daily Progress Note Subjective Date Seen by Provider: Sep 28, 2018 Time Seen by Provider: 00:15 The patient was alert and some confusion was noted. Objective The patient consumed a snack and his drink without s/s of aspiration with minimal verbal cues to utilize the compensatory strategies as trained. Assessment Assessment Current Status: Good Progress Treatment Plan Continue Plan of Care Speech Short Term Goals Short Term Goals Short Term Goals 1) The patient will tolerate least restrictive diet level at 90% or greater with minimal cues and no s/s of aspiration. 2) The patient will utilize compensatory strategies as trained with 90% or greater with minimal cues. Speech Network Services Project Manager Goals Network Services Project Manager Goals The patient will maintain adequate nutrition/hydration via safe effective swallow function. Speech-Plan Patient/Family Goals Patient/Family Goals: The patient plans to return home where he lives alone, however he will have family near by for assistance as needed. Treatment Plan Speech Therapy Treatment Plan: Continue Plan of Care The patient is progressing well. Treatment Duration: Sep 30, 2018 Frequency: 5 times per week Estimated Hrs Per Day: .25 hour per day Rehab Potential: Fair Barriers to Learning: Patient is confused at times, decreased retention of compensatory strategies Pt/Family Agrees to Plan: Yes Safety Risks/Education Teaching Recipient: Patient Teaching Methods: Demonstration, Discussion Response to Teaching: Verbalize Understanding, Return Demonstration Time Speech Therapy Time In: 11:00 Speech Therapy Time Out: 11:15 Total Billed Time: 15 Billed Treatment Time 1M[address] Sep 28, 2018 15:31
[2018-09-28 18:20] VITALS: BP 111/53
[2018-09-28] MEDS ORDERED: POLYETHYLENE GLYCOL 17 GM (MIRALAX) PACK PO SCH (21:00)
[2018-09-29] MEDS: RT-ALBUTEROL/IPRATROPIUM 3 ML (DUONEB) VIAL INH SCH ×2 (03:00→09:30)
[2018-09-29 06:00] VITALS: BP 143/76
[2018-09-29] MEDS: inSUlin ASPART (NovoLOG) 1 UNIT/0.01 ML (CHARGE PER UNIT) SC SCH (06:08)
[2018-09-29] MEDS: predniSONE 20 MG TAB PO SCH (06:09)
--- NOTE | 2018-09-29 09:03 | Discharge Summary ---
Diagnosis/Chief Complaint Date of Admission Sep 23, 2018 at 10:36 Date of Discharge Discharge Date: Sep 29, 2018 Discharge Time: 10:00 Discharge Summary Discharge Physical Examination Allergies: Coded Allergies: Penicillins (Unverified Allergy, Unknown, 09/18/18) Vitals & I&Os Vital Signs Date Time Temp Pulse Resp B/P (MAP) Pulse Ox O2 Delivery O2 Flow Rate FiO2 09/29/18 06:00 96.3 66 20 143/76 (98) 100 Nasal Cannula 2.00 General Appearance: Alert, Oriented X3, Cooperative, No Acute Distress HEENT: Atraumatic, PERRLA Respiratory: Other (IMPROVED AIR MOVEMENT THROUGHOUT) Cardiovascular: Regular Rate Abdominal: Normal Bowel Sounds, Soft Extremities: No Cyanosis, Other (+3 PITTING AT ANKLES) Skin: No Rashes Neuro: Normal Speech Psych/Mental Status: Mental Status NL, Mood NL Hospital Course Pending Labs Laboratory Tests 09/29/18 06:08: Glucometer 125 Discharge Instructions to patient/family Please see electronic discharge instructions given to patient. Discharge Medications Reviewed and agree with Discharge Medication list on patient's Discharge Instruction sheet Clinical Quality Measures DVT/VTE Risk/Contraindication: Risk Factor Score Per Nursin MASON ACEVES MD Sep 29, 2018 09:03
[2018-09-29] MEDS: KCL 20 MEQ TAB (K-DUR) PO SCH (09:05)
[2018-09-29] MEDS: FUROSEMIDE 40 MG/4 ML INJ (LASIX) IVP SCH (09:05)
[2018-09-29] MEDS: APIXABAN 2.5 MG (ELIQUIS) TABLET PO SCH (09:05)
[2018-09-29] MEDS: SENNA W/DOCUSATE (SENOKOT S) TABLET PO SCH (09:05)
[2018-09-29] MEDS ORDERED: FURO20TA4 PO (09:08)
[2018-09-29] MEDS ORDERED: ALBU2.5V4 NEB (09:08)
[2018-09-29] MEDS ORDERED: FLUT1DIS26 IH (09:08)
[2018-09-29] MEDS ORDERED: POLY17PO31 PO (09:08)
[2018-09-29] MEDS ORDERED: POTA20TA8 PO (09:08)
[2018-09-29] MEDS ORDERED: PRD20T PO (09:10)
--- NOTE | 2018-09-29 09:13 | D/C HH Face to Face Order ---
D/C Face to Face Orders Instructions for Patient Via [facility], Patient Instructions/FollowUp: 1 [facility] 2[facility] 2 [facility] Physician to follow Patient: [facility] Discharge Diet for Home: Low Sodium Diet Patient Data-Allergies,Ht & Wt Patient Allergies: Coded Allergies: Penicillins (Unverified Allergy, Unknown, 09/18/18) Height (Feet): 6 Height (Inches): 1.00 Weight (Pounds): 193 Weight (Ounces): 4.0 Home Health Need/Face to Face Date of Face to Face: Sep 29, 2018 Clinical Findings: Generalized weakness and fatigue, Muscle weakness, Shortness of breath I have seen Pt uvau-en-aozt: Yes Discharged To: Home (UNTIL October THEN TO [facility]) Diagnosis/Conditions: COPD, CHF, DM, GENERALIZED WEAKNESS, HX TOBACCOISM, PNEUMONIA, OA Patient is Homebound due to: Flaco fall risk due to instabilty, Muscle weakness , Shortness of breath/distress Homebound Status Due to the above stated illness, injury or surgical procedure (medical condition or diagnosis) and associated clinical findings, the patient is homebound because of his/her inability to leave home except with aid of a supportive device and/or person AND leaving the home requires a considerable and taxing effort or is medically contraindicated. Pt req the following assistanc: Walker Home Health Nursing Orders Home Health Services Order: Nursing Services, Physical Therapy-Evaluate & Treat Home Health Infusion Therapy Line Type: Saline Lock Site Location: Forearm Therapy Orders Therapy Orders: PT to assess for OT Therapy Specific Orders: Teach enviro modifications/safety, Increase strength/ endurance Certify Stmt I certify that this patient is under my care and that I, a nurse practitioner or a physician; a assistant customer service manager working with me, had a face to face encounter that - meets the physician face to face encounter requirements with this patient as dated. MASON ACEVES MD Sep 29, 2018 09:13
--- NOTE | 2018-09-29 10:29 | NUR ---
CM/SS. Patient discharged to his home under his daughter's care as planned. HHC: Finalized with [facility]. DME: Patient has established home O2 with [facility]. Daughter Sydney brought [employer] for transport and patient has concentrator at home. Lead Generator updated Sophia of patient's RT home O2 study as it pertains to his current orders with them.
--- NOTE | 2018-09-29 10:50 | Therapy Team Discharge Summary ---
Therapy Discharge Summary Discharge Recommendations Date of Discharge 09-29-18 Therapy D/C Recommendations: 24 hr Supervision, Home w/ Family Support Occupational Therapy Pt. has been seen briefly by occupational therapy to increase overall strength and independence with daily skills. Pt. often required max cues and encouragement to participate in ADL activities. Pt. often fatigued and felt that he could not do much. Pt. required mod/max assist with daily skills overall. Would often decline participating in ADL tasks, but would agree to exercises or ambulation. Pt. to discharge home with daughter support before further care. Decreased Activ Tolerance, Decreased UE Strength, Dependent Transfers, Impaired Bed Mobility, Impaired Cognition, Impaired Funct Balance, Impaired I ADL's, Impaired Self-Care Skills, Restricted Funct UE ROM PT Data Center Solutions Architect Goals Alf Goals Rollin OT Alf Goals Data Center Solutions Architect Goals Time Frame: October 07, 2018 Eating (FIM): 6 (not met) Eating (QC): 6 (not met) Groomin (not met) Oral Hygiene (QC): 6 (not met) Bathing(FIM): 4 (not met) Upper Body Dressing(FIM): 5 (not met) Lower Body Dressing(FIM): 5 (not met) Toileting(FIM): 5 (not met) Toileting Hygiene (QC): 5 (not met) Toilet/Commode Transfer(FIM): 5 (not met) Toilet/Commode Transfer (QC): 5 (not met) Shower Transfer(FIM): 5 (not met) Additional Goals: 1-Demonstrate ADL Tasks, 2-Verbalize Understanding, 3- ImproveStrength/Tereza 1=Demonstrate adherence to instructed precautions during ADL tasks. 2=Patient will verbalize/demonstrate understanding of assistive devices/ modifications for ADL. 3=Patient will improve strength/tolerance for activity to enable patient to perform ADL's. Speech Data Center Solutions Architect Goals Alf Goals The patient will maintain adequate nutrition/hydration via safe effective swallow function. SANTI VELOZ OT Sep 29, 2018 10:50
[2018-09-29 11:06] VITALS: BP 143/76
--- NOTE | 2018-09-29 12:42 | Therapy Team Discharge Summary ---
Therapy Discharge Summary Discharge Recommendations Date of Discharge Sep 29, 2018 at 11:17 Therapy D/C Recommendations: 24 hr Supervision, Home w/ Family Support Physical Therapy This patient was seen on B status for skilled therapy intervention post acute hospital stay due to influenza and CHF. Prior to hospital admit, pt was indep with mobility. Upon initial evaluation, he was min cora tiwth transfers and walked 15 ft with min assist. Treatment consisted of functional strength and transfers with gait training. At last visit, he required mod assist to transfer and walked 30 ft with FWW with min assist. Goals were not fully met. Pt to discharge home with caregiver support. Recommend [facility] PT to follow. Occupational Therapy Decreased Activ Tolerance, Decreased UE Strength, Dependent Transfers, Impaired Bed Mobility, Impaired Cognition, Impaired Funct Balance, Impaired I ADL's, Impaired Self-Care Skills, Restricted Funct UE ROM PT Millstone Cleaner Goals Millstone Cleaner Goals Rollin OT Mcfp Goals Mcfp Goals Time Frame: October 07, 2018 Eating (FIM): 6 (not met) Eating (QC): 6 (not met) Groomin (not met) Oral Hygiene (QC): 6 (not met) Bathing(FIM): 4 (not met) Upper Body Dressing(FIM): 5 (not met) Lower Body Dressing(FIM): 5 (not met) Toileting(FIM): 5 (not met) Toileting Hygiene (QC): 5 (not met) Toilet/Commode Transfer(FIM): 5 (not met) Toilet/Commode Transfer (QC): 5 (not met) Shower Transfer(FIM): 5 (not met) Additional Goals: 1-Demonstrate ADL Tasks, 2-Verbalize Understanding, 3- ImproveStrength/Tereza 1=Demonstrate adherence to instructed precautions during ADL tasks. 2=Patient will verbalize/demonstrate understanding of assistive devices/ modifications for ADL. 3=Patient will improve strength/tolerance for activity to enable patient to perform ADL's. Speech Millstone Cleaner Goals Millstone Cleaner Goals The patient will maintain adequate nutrition/hydration via safe effective swallow function. YAZMIN SARGENT PT Sep 29, 2018 12:42
== END 2018-09-29 11:17 | disposition home health service (06) | DRG 193 ==
LOC: 4TH 10:36
PROVIDERS: ADMIT Family Medicine; ATTEND Family Medicine
DX: J18.9 Pneumonia, unspecified organism (principal); J44.1 Chronic obstructive pulmonary disease with (acute) exacerbation; J44.0 Chronic obstructive pulmonary disease with (acute) lower respiratory infection; I21.4 Non-ST elevation (NSTEMI) myocardial infarction; I11.0 Hypertensive heart disease with heart failure; I50.20 Unspecified systolic (congestive) heart failure; N17.9 Acute kidney failure, unspecified; J96.21 Acute and chronic respiratory failure with hypoxia; R91.1 Solitary pulmonary nodule; E78.00 Pure hypercholesterolemia, unspecified; E11.9 Type 2 diabetes mellitus without complications; M19.91 Primary osteoarthritis, unspecified site; R41.0 Disorientation, unspecified; R53.81 Other malaise; Z99.81 Dependence on supplemental oxygen
CPT/HCPCS: 36415; 71045; 71046; 80048; 80053; 82962; 83735; 83880; 84100; 85007; 85027; 94640; 94760; 94761